=== PATIENT | female | born 1940 | race Caucasian/White ===

== ENCOUNTER 2023-06-18 04:01 | Inpatient (IN) ==
[2023-06-18] MEDS: SODIUM CHLORIDE 0.9% 1,000 ML IV SCH (04:26)
--- NOTE | 2023-06-18 04:27 | Emergency Department Note ---
Impression & Plan Hypoxia, Elevated troponin ED Provider Note NAME: PIPO FLYNN AGE: 82 SEX: F : 1940 ARRIVES VIA: Ambulance INFORMANT: Patient, ED PROVIDER(S): Yessenia Bennett MD CHIEF COMPLAINT: Fever, nausea, generalized weakness HPI: This is an 82-year-old female presenting for fevers, nausea and generalized weakness. Patient had a EMS alerted due to with fevers as well as nausea, weakness and was essentially unresponsive at the scene. Patient is currently significantly fatigued, not answering any questioning. She is currently tachypneic, febrile with an oxygen saturation of 84% on room air. Patient is currently on 6 L. Family states that she has been sick since Monday with fevers, body aches and worsening fatigue. She has had no chest pain that she currently mentions. No diarrhea. ROS: See above HPI for pertinent positives & negatives. A total of 10 systems reviewed and were otherwise negative. PAST MEDICAL HISTORY: See Below PAST SURGICAL HISTORY: See Below FAMILY HISTORY: See Below SOCIAL HISTORY: See Below HOME MEDICATIONS: See Below ALLERGIES: See Below VITALS: See Below PHYSICAL EXAMINATION: General: Lethargic Head: Normocephalic and atraumatic Eyes: Normal inspection, extraocular muscles intact Ear, nose, throat: Normal external exam Neck: Normal range of motion Respiratory: lungs clear to auscultation bilaterally Cardiovascular: Regular rate/rhythm, no murmur GI: soft, nontender, no guarding or rebound Extremities: nontender, moves all extremities Neuro: Not awake or alert, moves all extremities Skin: Warm, dry, and intact MEDICAL DECISION MAKING: This is an 82-year-old female presenting for fever, nausea and generalized weakness. Patient is fairly lethargic here, unable to answer questions. She has borderline hypotension, elevated heart rate and significant fever. Will give her Tylenol and empiric antibiotics with ceftriaxone for suspected pneumonia. She is hypoxic into the 80s -Blood work reveals slight anemia, hypokalemia and normal LFTs -Patient urinalysis reveals no signs of UTI -Negative viral panel -Patient has surprisingly elevated troponin over 1500. Patient more awake after oxygen ministration, she denies any current chest pain or chest pain at all throughout the course of her illness -ECG independently interpreted by me with normal sinus rhythm, rate of 93, left axis deviation, normal MA, normal QRS, normal QTc, no ST segment elevations consistent with STEMI criteria -Repeat troponin is rising to over 2600 -2nd ECG independently interpreted by me with normal sinus rhythm, rate of 83, left axis deviation, normal MA, normal QRS, normal QTc, no ST segment elevations consistent with STEMI criteria, no significant change -Patient CTA currently reveals no process in the arteries. CT head was ordered for confusion, also reveals no intracranial process. -Will defer further workup at this time with otherwise reassuring/negative workup Differential diagnosis: Pneumonia, viral syndrome, myocarditis, ACS, PE ER treatment provided: See below Diagnostics interpreted by me: ECG: See above Cardiac Monitoring: An order was placed for continuous cardiac monitoring. The monitor shows a rate of 85 with sinus rhythm. Laboratory studies: As stated above and show below. Imaging studies: See below. Critical Care Note: I have personally spent 45 minutes of critical care time in the direct management of this patient. This includes bedside care, interpretation of diagnostic studies, and testing, discussion with consultants, patient, and family members, and other required patient management activities. This 45 minutes is in excess of all separately billable procedures. Past Med/Surg History Social History Smoking Status: Never smoker Preferred Language: Arabic Feels Safe at Home: Yes Allergies Allergies Allergy/AdvReac Type Severity Reaction Status Date / Time latex Allergy UNKNOWN Verified 04/18/11 08:48 Sulfa (Sulfonamide Allergy UNKNOWN Verified 04/18/11 08:48 Antibiotics) Results & Data (ED) Vital Signs Vital Signs - 24 hr 06/18/23 04:02 06/18/23 04:02 06/18/23 04:03 Temperature 39.4 C H 39.4 C H Temperature Source Oral Oral Pulse Rate 93 H 93 H Pulse Rate [Finger] 94 H Pulse Rate from SpO2 Sensor Respiratory Rate 38 H 24 Respiratory Depth Normal Blood Pressure 133/62 Blood Pressure [Right Arm] 133/62 Blood Pressure Mean 85 Blood Pressure Mean [Right Arm] 85 Blood Pressure Position [Right Arm] Lying Pulse Oximetry 84 L 84 L Oxygen Delivery Method Room Air Room Air Oxygen Flow Rate Sepsis Recent Fever Within 48 Hours Yes Sepsis New/Unexplained Change in Mental Status Yes Sepsis Action Taken by Nursing Physician Notified 06/18/23 04:15 06/18/23 04:30 06/18/23 04:38 Temperature Temperature Source Pulse Rate 90 92 H Pulse Rate [Finger] Pulse Rate from SpO2 Sensor Respiratory Rate 24 28 H Respiratory Depth Blood Pressure 121/52 L 127/57 L Blood Pressure [Right Arm] Blood Pressure Mean 75 80 Blood Pressure Mean [Right Arm] Blood Pressure Position [Right Arm] Pulse Oximetry 95 96 99 Oxygen Delivery Method Nasal Cannula Nasal Cannula Oxygen Flow Rate 4 4 Sepsis Recent Fever Within 48 Hours Sepsis New/Unexplained Change in Mental Status Sepsis Action Taken by Nursing 06/18/23 04:57 06/18/23 05:15 06/18/23 05:30 Temperature Temperature Source Pulse Rate 88 86 86 Pulse Rate [Finger] Pulse Rate from SpO2 Sensor Respiratory Rate 28 H 26 H 25 H Respiratory Depth Blood Pressure 123/53 L 122/53 L 117/51 L Blood Pressure [Right Arm] Blood Pressure Mean 76 76 73 Blood Pressure Mean [Right Arm] Blood Pressure Position [Right Arm] Pulse Oximetry 95 97 96 Oxygen Delivery Method Nasal Cannula Oxygen Flow Rate 4 Sepsis Recent Fever Within 48 Hours Sepsis New/Unexplained Change in Mental Status Sepsis Action Taken by Nursing 06/18/23 05:45 06/18/23 06:07 06/18/23 06:30 Temperature 38.2 C H Temperature Source Pulse Rate 91 H 89 82 Pulse Rate [Finger] Pulse Rate from SpO2 Sensor Respiratory Rate 24 24 22 Respiratory Depth Blood Pressure 116/57 L 116/65 113/55 L Blood Pressure [Right Arm] Blood Pressure Mean 76 82 74 Blood Pressure Mean [Right Arm] Blood Pressure Position [Right Arm] Pulse Oximetry 96 95 94 Oxygen Delivery Method Nasal Cannula Oxygen Flow Rate 4 Sepsis Recent Fever Within 48 Hours Sepsis New/Unexplained Change in Mental Status Sepsis Action Taken by Nursing 06/18/23 07:00 Temperature Temperature Source Pulse Rate 80 Pulse Rate [Finger] Pulse Rate from SpO2 Sensor 80 Respiratory Rate 21 Respiratory Depth Blood Pressure 110/52 L Blood Pressure [Right Arm] Blood Pressure Mean 71 Blood Pressure Mean [Right Arm] Blood Pressure Position [Right Arm] Pulse Oximetry 95 Oxygen Delivery Method Nasal Cannula Oxygen Flow Rate 2 Sepsis Recent Fever Within 48 Hours Sepsis New/Unexplained Change in Mental Status Sepsis Action Taken by Nursing Laboratory Data 06/18/23 04:08 06/18/23 04:08 Lab Results 06/18/23 06/18/23 06/18/23 Range/Units 04:08 04:20 05:54 WBC 9.06 (4.8-10.8) K/ul RBC 4.38 (4.20-5.40) M/uL Hgb 10.1 L (12.0-16.0) g/dl Hct 31.9 L (37.0-47.0) % MCV 72.8 L (80.0-100.0) fL MCH 23.1 L (25.0-34.0) pg MCHC 31.7 L (32.0-36.0) g/dL RDW Std Deviation 38.8 (36.4-46.3) fL RDW Coeff of Jas 14.8 H (11.5-14.5) % Plt Count 102 L (130-400) K/uL MPV 10.9 (9.4-12.4) fL Immature Gran % (Auto) 0.6 % Neut % (Auto) 93.4 % Lymph % (Auto) 2.6 % Barnwell % (Auto) 3.2 % Eos % (Auto) 0.0 % Baso % (Auto) 0.2 % Neut # (Auto) 8.46 H (1.40-6.50) K/uL Lymph # (Auto) 0.24 L (1.20-3.40) K/uL Barnwell # (Auto) 0.29 (0.11-0.59) K/uL Eos # (Auto) 0.00 (0.00-0.50) K/uL Baso # (Auto) 0.02 (0.00-0.20) K/uL Immature Gran # (Auto) 0.05 (0.01-0.20) K/uL Tear Drop Cells 1+ Ovalocytes 2+ Sodium 134 L (136-145) mmol/L Potassium 3.0 L (3.5-5.1) mmol/L Chloride 101 (98-107) mmol/L Carbon Dioxide 23 (21-32) mmol/L Anion Gap 10 (3-11) BUN 18 (6-23) mg/dl Creatinine 0.83 (0.6-1.2) mg/dl Est Cr Clr Drug Dosing 54.1 ml/min Est GFR ( Amer) 76.6 ml/min Est GFR (Non-Af Amer) 66.1 ml/min BUN/Creatinine Ratio 21.7 H (10-20) Glucose 137 H (70-99(Fasting)) mg/dl Lactate 0.9 (0.4-2.0) mmol/L Calcium 8.5 L (8.6-10.3) mg/dl Total Bilirubin 2.0 H (0.2-1.0) mg/dl AST 21 (13-39) U/L ALT 9 (7-52) U/L Alkaline Phosphatase 45 (34-104) U/L Troponin I High Sens 1542.6 H* 2609.0 H* D (0-14) pg/ml B-Natriuretic Peptide 389 H (0-100) pg/ml Total Protein 5.9 L (6.0-8.3) gm/dl Albumin 3.6 (3.4-5.0) gm/dl Globulin 2.3 L (2.5-4.0) gm/dl Albumin/Globulin Ratio 1.6 (0.9-2) Urine Color Yellow Urine Appearance Clear (Clear) Urine pH 5.0 (4.5-7.5) Ur Specific Benedict 1.025 (1.000-1.030) Urine Protein 1+ H (Negative) Urine Glucose (UA) Negative (Negative) Urine Ketones 2+ H (Negative) Urine Blood Negative (Negative) Urine Nitrite Negative (Negative) Urine Bilirubin Negative (Negative) Urine Urobilinogen Negative (Negative) Ur Leukocyte Esterase Negative (Negative) Urine WBC (Auto) 0 (0-5) /hpf Urine RBC (Auto) 0-4 (0-4) /hpf U Hyaline Cast (Auto) 1-5 (0-5) /lpf U Epithel Cells (Auto) 0-5 (0-5) /lpf Urine Bacteria (Auto) Negative (Negative) Adenovirus (PCR) Not Detected (NotDetected) B. pertussis DNA (PCR) Not Detected (NotDetected) B.parapertussis DNA PCR Not Detected (NotDetected) C. pneumoniae DNA (PCR) Not Detected (NotDetected) Coronavirus OC43 (PCR) Not Detected (NotDetected) Coronavirus HKU1 (PCR) Not Detected (NotDetected) Coronavirus 229E (PCR) Not Detected (NotDetected) SARS-CoV-2 (PCR) Not Detected (NotDetected) Coronavirus NL63 (PCR) Not Detected (NotDetected) Human Metapneumovir PCR Not Detected (NotDetected) Influenza Type A (PCR) Not Detected (NotDetected) Influenza Type B (PCR) Not Detected (NotDetected) M. pneumoniae (PCR) Not Detected (NotDetected) Parainfluenza 1 (PCR) Not Detected (NotDetected) Parainfluenza 2 (PCR) Not Detected (NotDetected) Parainfluenza 3 (PCR) Not Detected (NotDetected) Parainfluenza 4 (PCR) Not Detected (NotDetected) RSV (PCR) Not Detected (NotDetected) Entero/Rhino (PCR) Not Detected (NotDetected) Administered Medications Potassium Chloride (K Crispin / Wtr) 10 meq in 100 mls @ 100 mls/hr IV Q1H JOHNNA Stop: 06/18/23 13:29 Last Admin: 06/18/23 07:31 Dose: 100 mls/hr Documented By: CHICO Sodium Chloride (Nss) 1,000 mls @ 999 mls/hr IV .Q1H1M ONE Stop: 06/18/23 08:24 Last Admin: 06/18/23 07:28 Dose: 999 mls/hr Documented By: CHICO Discontinued Medications Sodium Chloride (Nss) 1,000 mls @ 999 mls/hr IV .Q1H1M JOHNNA Stop: 06/18/23 05:30 Last Infusion: 06/18/23 05:27 Dose: Infused Documented By: Admin: 06/18/23 04:26 Dose: 999 mls/hr Documented By: MILY Ceftriaxone Sodium (Rocephin) 2,000 mg in 50 mls @ 100 mls/hr IV NOW STA Stop: 06/18/23 04:47 Last Infusion: 06/18/23 05:03 Dose: Infused Documented By: Admin: 06/18/23 04:28 Dose: 100 mls/hr Documented By: MILY Acetaminophen (Ofirmev) 1,000 mg in 100 mls @ 400 mls/hr IV NOW STA Stop: 06/18/23 04:59 Last Infusion: 06/18/23 05:11 Dose: Infused Documented By: Admin: 06/18/23 04:56 Dose: 400 mls/hr Documented By: MILY Ioversol (Optiray 320 125ml) 78 ml IV ONCE ONE Stop: 06/18/23 05:59 Last Admin: 06/18/23 05:59 Dose: 78 ml Documented By: PLW Imaging Data Radiologist's Impression: Head CT 06/18/23 04:27 Exam(s): CT HEAD Without Contrast EXAM: CT Head Without Intravenous Contrast CLINICAL HISTORY: Reason for exam: unresponsive. TECHNIQUE: Axial computed tomography images of the head/brain without intravenous contrast. Automated exposure control was utilized for the study. A dose lowering technique was utilized adhering to the principles of ALARA. COMPARISON: No relevant prior studies available. 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 No hemorrhage. Ventricles: Unremarkable. No ventriculomegaly. Bones/joints: Unremarkable. No acute fracture. Soft tissues: Unremarkable. Sinuses: Unremarkable as visualized. No acute sinusitis. Mastoid air cells: Unremarkable as visualized. No mastoid effusion. IMPRESSION: No acute findings in the head/brain. Electronically signed by: Juan Ramon Domínguez MD 06/18/23 06:24 AM Chest CTA 06/18/23 05:17 Exam(s): CTA CHEST IV Amt: 78 ml opti 320 EXAM: CT Angiography Chest With Intravenous Contrast CLINICAL HISTORY: Reason for exam: PE. TECHNIQUE: Axial computed tomographic angiography images of the chest with intravenous contrast. CTDI is 24.49 mGy and DLP is 760.06 mGy-cm. Automated exposure control was utilized for the study. A dose lowering technique was utilized adhering to the principles of ALARA. MIP reconstructed images were created and reviewed. COMPARISON: No relevant prior studies available. FINDINGS: Pulmonary arteries: Unremarkable. No pulmonary embolism. Aorta: No acute findings. No thoracic aortic aneurysm. Lungs: Bibasilar dependent atelectasis. No mass. Pleural space: Unremarkable. No significant effusion. No pneumothorax. Heart: Cardiomegaly. Coronary artery calcifications. No significant pericardial effusion. No evidence of RV dysfunction. Bones/joints: Advanced degenerative changes of the left shoulder. No acute fracture. No dislocation. Soft tissues: Unremarkable. Lymph nodes: Unremarkable. No enlarged lymph nodes. IMPRESSION: No acute findings in the visualized arteries of the chest. Electronically signed by: Joselito Foy MD 06/18/23 07:06 AM Discharge Plan Visit Data Chief Complaint: Flu Like Symptoms Stated Complaint: N/V, Fever, Body Aches ED Provider: Yessenia Bennett Discharge Problem: Hypoxia, Elevated troponin Forms Stand Alone Forms: [facility] Referrals Referrals: Pita Dietz DO [Primary Care Provider] -
[2023-06-18 04:28] LABS: Hematocrit (blood only) 31.9 % (37.0-47.0); Hemoglobin 10.1 g/dl (12.0-16.0); Mean Corpuscular Hemoglobin 23.1 pg (25.0-34.0); Mean Corpuscular Hgb Conc 31.7 g/dL (32.0-36.0); Mean Corpuscular Volume 72.8 fL (80.0-100.0); Mean Platelet Volume 10.9 fL (9.4-12.4); Platelet Count 102 K/uL (130-400); RDW Coefficient of Variation 14.8 % (11.5-14.5); RDW Standard Deviation 38.8 fL (36.4-46.3); Red Blood Count 4.38 M/uL (4.20-5.40); White Blood Count 9.06 K/ul (4.8-10.8)
[2023-06-18] MEDS: cefTRIAXone SODIUM 2,000 MG/50 ML BAG IV STA (04:28)
[2023-06-18 04:35] LABS: Appearance Urine Clear (Clear); Bacteria Urine Automated Negative (Negative); Bilirubin Urine Negative (Negative); Blood Urine Negative (Negative); Color Urine Yellow; Epithelial Cell Urine Auto 0-5 /lpf (0-5); Glucose Urine UA Negative (Negative); Ketones Urine 2+ (Negative); Leukocyte Esterase Urine Negative (Negative); Nitrite Urine Negative (Negative); Protein Urine 1+ (Negative); RBC Urine Automated 0-4 /hpf (0-4); Specific Gravity Urine 1.025 (1.000-1.030); Urobilinogen Urine Negative (Negative); WBC Urine Automated 0 /hpf (0-5)
[2023-06-18 04:50] LABS: Albumin Globulin Ratio 1.6 (0.9-2); Albumin Level 3.6 gm/dl (3.4-5.0); BUN Creatinine Ratio 21.7 (10-20); Calcium 8.5 mg/dl (8.6-10.3); Creatinine Clr Calc Pharmacy 54.1 ml/min; Est GFR (African American) 76.6 ml/min; Est GFR (Non-African American) 66.1 ml/min; Globulin 2.3 gm/dl (2.5-4.0); Total Protein 5.9 gm/dl (6.0-8.3)
[2023-06-18] MEDS: ACETAMINOPHEN 1,000 MG/100 ML VIAL IV STA (04:56)
[2023-06-18 04:57] LABS: Basophils # (auto) 0.02 K/uL (0.00-0.20); Basophils % (auto) 0.2 %; Immature Granulocytes # (auto) 0.05 K/uL (0.01-0.20); Immature Granulocytes % (auto) 0.6 %; Lymphocytes # (auto) 0.24 K/uL (1.20-3.40); Lymphocytes % (auto) 2.6 %; Monocytes # (auto) 0.29 K/uL (0.11-0.59); Monocytes % (auto) 3.2 %; Neutrophils # (auto) 8.46 K/uL (1.40-6.50); Neutrophils % (auto) 93.4 %; Ovalocytes 2+; Tear Drop Cells 1+
[2023-06-18 05:10] LABS: Troponin I High Sensitivity 1542.6 pg/ml (0-14)
[2023-06-18 05:19] LABS: Adenovirus PCR Not Detected (NotDetected); Bordetella parapertussis PCR Not Detected (NotDetected); Bordetella pertussis PCR Not Detected (NotDetected); Chlamydia pneumoniae PCR Not Detected (NotDetected); Coronavirus 229E PCR Not Detected (NotDetected); Coronavirus CoV-2 (COVID19)PCR Not Detected (NotDetected); Coronavirus HKU1 PCR Not Detected (NotDetected); Coronavirus NL63 PCR Not Detected (NotDetected); Coronavirus OC43PCR Not Detected (NotDetected); Human Metapneumovirus PCR Not Detected (NotDetected); Influenza A PCR Not Detected (NotDetected); Influenza B PCR Not Detected (NotDetected); Mycoplasma pneumoniae PCR Not Detected (NotDetected); Parainfluenza Virus 1 PCR Not Detected (NotDetected); Parainfluenza Virus 2 PCR Not Detected (NotDetected); Parainfluenza Virus 3 PCR Not Detected (NotDetected); Parainfluenza Virus 4 PCR Not Detected (NotDetected); Respiratory Syncytial VirusPCR Not Detected (NotDetected); Rhinovirus/Enterovirus PCR Not Detected (NotDetected)
[2023-06-18] MEDS: OPTIRAY 320 125ml IV ONE (05:59)
--- NOTE | 2023-06-18 06:25 | CT Scan Report ---
Exam(s): CT HEAD Without Contrast EXAM: CT Head Without Intravenous Contrast CLINICAL HISTORY: Reason for exam: unresponsive. TECHNIQUE: Axial computed tomography images of the head/brain without intravenous contrast. Automated exposure control was utilized for the study. A dose lowering technique was utilized adhering to the principles of ALARA. COMPARISON: No relevant prior studies available. 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 No hemorrhage. Ventricles: Unremarkable. No ventriculomegaly. Bones/joints: Unremarkable. No acute fracture. Soft tissues: Unremarkable. Sinuses: Unremarkable as visualized. No acute sinusitis. Mastoid air cells: Unremarkable as visualized. No mastoid effusion. IMPRESSION: No acute findings in the head/brain. Electronically signed by: Juan Ramon Domínguez MD 06/18/23 06:24 AM
--- NOTE | 2023-06-18 07:07 | CT Scan Report ---
Exam(s): CTA CHEST IV Amt: 78 ml opti 320 EXAM: CT Angiography Chest With Intravenous Contrast CLINICAL HISTORY: Reason for exam: PE. TECHNIQUE: Axial computed tomographic angiography images of the chest with intravenous contrast. CTDI is 24.49 mGy and DLP is 760.06 mGy-cm. Automated exposure control was utilized for the study. A dose lowering technique was utilized adhering to the principles of ALARA. MIP reconstructed images were created and reviewed. COMPARISON: No relevant prior studies available. FINDINGS: Pulmonary arteries: Unremarkable. No pulmonary embolism. Aorta: No acute findings. No thoracic aortic aneurysm. Lungs: Bibasilar dependent atelectasis. No mass. Pleural space: Unremarkable. No significant effusion. No pneumothorax. Heart: Cardiomegaly. Coronary artery calcifications. No significant pericardial effusion. No evidence of RV dysfunction. Bones/joints: Advanced degenerative changes of the left shoulder. No acute fracture. No dislocation. Soft tissues: Unremarkable. Lymph nodes: Unremarkable. No enlarged lymph nodes. IMPRESSION: No acute findings in the visualized arteries of the chest. Electronically signed by: Joselito Foy MD 06/18/23 07:06 AM
[2023-06-18] MEDS: SODIUM CHLORIDE 0.9% 1,000 ML IV ONE (07:28)
[2023-06-18] MEDS: POTASSIUM CHLORIDE / WTR 10 MEQ/100 ML PLCT IV SCH (07:31)
--- NOTE | 2023-06-18 08:16 | Electrocardiogram Report ---
Test Reason : Blood Pressure : / mmHG Vent. Rate : 093 BPM Atrial Rate : 093 BPM P-R Int : 156 ms QRS Dur : 084 ms QT Int : 342 ms P-R-T Axes : 050 -37 040 degrees QTc Int : 425 ms Normal sinus rhythm Left axis deviation Abnormal ECG When compared with ECG of 22-JUL-2022 18:20, No significant change was found Confirmed by Gerardo Muniz ([id number]) on 06/18/2023 8:16:22 AM Referred By: REFERRED SELF Confirmed By:Gerardo Muniz
--- NOTE | 2023-06-18 08:17 | Electrocardiogram Report ---
Test Reason : Blood Pressure : / mmHG Vent. Rate : 083 BPM Atrial Rate : 083 BPM P-R Int : 178 ms QRS Dur : 086 ms QT Int : 350 ms P-R-T Axes : 035 -36 007 degrees QTc Int : 411 ms Normal sinus rhythm Left axis deviation Low voltage QRS Abnormal ECG When compared with ECG of 18-JUN-2023 04:05, No significant change Confirmed by Gerardo Muniz ([id number]) on 06/18/2023 8:16:44 AM Referred By: REFERRED SELF Confirmed By:Gerardo Muniz
[2023-06-18 08:25] LABS: Bilirubin Direct 0.3 mg/dl (0-0.2); C Reactive Protein 15.92 mg/dl (0-0.5); Thyroid Stimulating Hormone 0.517 uIu/ml (0.300-4.500)
--- NOTE | 2023-06-18 08:31 | XRay Report ---
XR chest 1V portable CLINICAL HISTORY: Dyspnea TECHNIQUE: Single frontal radiograph of the chest was obtained. 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 Calcified aortic knob is seen. The lungs are clear. No e vidence of pleural effusion or pneumothorax. IMPRESSION: No acute abnormalities and in particular no radiographic evidence of pneumonia. ACT 112: Negative or not required by law. Electronically signed by: Wily Hodges M.D. 06/18/2023 8:28 AM
--- NOTE | 2023-06-18 09:49 | History & Physical Report ---
Date of Service June 18, 2023 Assessment & Plan (1) Acute hypoxemic respiratory failure: Plan: Patient is an 82-year-old female with past medical history of controlled type 2 diabetes, hypertension, and hyperlipidemia presents to the hospital for evaluation of general unwellness. It seems since 06/16/2023, patient has had progressively worsening fever, nausea, chills, and bodyaches. She is also become more confused over the past 72 hours. Pt currently hemodynamically stable and to be admitted for further workup for FUO and acute hypoxemic resp failure. -Admit to telemetry, indication being elevated troponin and acute hypoxemic respiratory failure -Unsure as to etiology of acute hypoxemic respiratory failure, CTA and chest x- ray negative for any acute process/atelectasis -Potentially could be due to paroxysmal, abnormal heart rhythm resulting in elevated troponin and poor perfusion causing hypoxemia, continue telemetry -Echocardiogram pending -No history of COPD/asthma, O2 saturation goal of 90% supplemental O2 as needed, currently on 2 L nasal cannula but was previously up to 6 L via EMS -BioFire negative, no adventitious sounds on auscultation -Incentive spirometer ordered (2) Fever: Plan: -? etiology at this time, no lung or urinary source identified on testing -May have to consider CT of abdomen if fever persists and workup below is negative -ESR, CRP, Tickborne illness, TSH labs pending -Peripheral smear ordered, blood culture pending -Hold antipyretics to trend fever -No source of infection identified, hold empiric abx for now given stability (3) Hypokalemia: Plan: - Admission potassium of 3.0 -Suspect secondary to poor p.o. intake in the setting of nausea and fever -Ordered 6K riders in emergency department, currently being given (4) Elevated troponin: Plan: - Troponin on admission at more than 2600, without chest pain or ACS symptoms -Given work of breathing and without evidence of ischemia on EKG, suspect demand ischemia -Echocardiogram ordered, cardiology consulted, appreciate recommendations (5) Type 2 diabetes mellitus: Plan: -Switch metform to basal bolus insulin w/ ss -Pt's reports a1c around 6 through PCP (6) Microcytic anemia: Plan: -chronic issue, noted in previous ED labs last year -morning anemia labs ordered (7) Hypertension: Plan: -Hold antihypertensives given soft BP and electrolyte abnormalities (8) Hyperlipemia: Plan: -Hold statin for now (9) GERD (gastroesophageal reflux disease): Plan: -Continue PPI Plan Dispo: admit to tele for cardiac and fever workup DVT Proph: Heparin Diet: DM2 Code Status: Full as discussed with patient and family History of Present Illness Chief Complaint: Fever Primary Care Provider: Pita Dietz DO Patient is an 82-year-old female with past medical history of controlled type 2 diabetes, hypertension, and hyperlipidemia presents to the hospital for evaluation of general unwellness. It seems since 06/16/2023, patient has had progressively worsening fever, nausea, chills, and bodyaches. She is also become more confused over the past 72 hours. Apparently, earlier this morning, patient became significantly fatigued and confused, so family called EMS. When she was found by EMS, she was tachypneic with an O2 saturation of 84% on room air and was nonresponsive at the scene. She was brought to the hospital for further evaluation. At the time of my arrival, patient's mentation is much improved and she states she is feeling better. She is denying any chest pain nor shortness of breath currently. She has never had a heart attack or stroke. She is able to tell me where we as well as the context but is unable to tell me the president or the year. She is able to state her name and her correct date of . and son are at bedside who states the patient has not been eating or drinking much over the past 3 days. They state that nothing like this has ever happened before. They report that she and her do own 3 dogs and were considering Lyme disease as a possibility for her symptoms. Neither recall having a tick on either of them. denies that the patient has had any diarrhea, hematochezia or melena as far as he is aware. Patient does have a history of diabetes but her sugars have been well-controlled. No other voiced complaints at this time. ED Course: Patient brought back and evaluated by provider. Labs are significant for hemoglobin of 10.1, normal white cell count, mildly low sodium at 134, low potassium at 3.0, glucose 137, bilirubin of 2, high-sensitivity troponin of 1542 that up trended to 2609, urinalysis negative for UTI, bio fire negative. Head CT and chest CTA negative for any acute process. Blood cultures taken prior to Rocephin administration. Patient given a fluid bolus as well as Tylenol and thereafter started on potassium chloride supplementation. The hospitalist service was consulted for concern regarding acute hypoxemic respiratory failure and further workup regarding fever of unknown origin. Allergies Allergy/AdvReac Type Severity Reaction Status Date / Time latex Allergy UNKNOWN Verified 06/18/23 08:40 Sulfa (Sulfonamide Allergy UNKNOWN Verified 06/18/23 08:40 Antibiotics) Home Medications Medication Instructions Recorded Confirmed Type Lactobacillus rhamnosus GG 10 1 cap PO QAM 06/18/23 06/18/23 History billion cell capsule (Culturelle) amlodipine 10 mg tablet 10 mg PO QAM 06/18/23 06/18/23 History atorvastatin 10 mg tablet 10 mg PO HS 06/18/23 06/18/23 History glucosamine-chondroitin 250 mg-200 2 tab PO QAM 06/18/23 06/18/23 History mg tablet (Osteo Bi-Flex) hydrochlorothiazide 12.5 mg tablet 12.5 mg PO QPM 06/18/23 06/18/23 History losartan 100 mg tablet 100 mg PO HS 06/18/23 06/18/23 History metformin 500 mg tablet,extended 1,000 mg PO BID 06/18/23 06/18/23 History release 24 hr omeprazole 20 mg capsule,delayed 20 mg PO QAM 06/18/23 06/18/23 History release Past Med/Surg History Social History Smoking Status: Never smoker Hx Alcohol Use: No Hx Substance Use: No Preferred Language: Omani Director Of Convention Services Required: No Beliefs That Will Affect Care: None Current Living Situation: Spouse Other Information That Helps Us Care for You: No Feels Safe at Home: Yes Safety Concerns: Feels Safe At This Time Assistive Devices: None Review of Systems Review of Systems: All systems reviewed & are unremarkable except as noted in HPI & below Physical Exam Constitutional: WD/WN, vitals as above Eyes: + anicteric sclerae Neck: trachea midline, no thyromegaly Respiratory: normal respiratory effort, lungs clear to auscultation Cardiovascular: Rate/Rhythm: regular rate and regular rhythm Heart Sounds: + murmur Vessels: no JVD Extremities: + edema (1+ pitting edema b/l) Gastrointestinal (Abdomen): normal bowel sounds, soft, nontender, no hepatosplenomegaly Musculoskeletal: Head/Neck/Chest: normocephalic and head atraumatic Skin: [place] rash noted Neurologic: moves all extremities Psychiatric: Orientation: alert, oriented to person, oriented to place and cooperative; + not oriented to time Affect: euthymic affect Lymphatic: no cervical or axillary lymphadenopathy Results & Data Results & Data Vital Signs (Past 12 Hours) Vital Signs Temp Pulse Pulse Resp BP BP Pulse Ox 06/18/23 08:29 82 06/18/23 08:00 86 24 112/59 L 94 06/18/23 07:30 86 26 H 109/54 L 97 06/18/23 07:00 80 21 110/52 L 95 06/18/23 06:30 82 22 113/55 L 94 06/18/23 06:07 89 24 116/65 95 06/18/23 05:45 38.2 C H 91 H 24 116/57 L 96 06/18/23 05:30 86 25 H 117/51 L 96 06/18/23 05:15 86 26 H 122/53 L 97 06/18/23 04:57 88 28 H 123/53 L 95 06/18/23 04:38 99 06/18/23 04:30 92 H 28 H 127/57 L 96 06/18/23 04:15 90 24 121/52 L 95 06/18/23 04:03 93 H 06/18/23 04:02 39.4 C H 93 H 24 133/62 84 L 06/18/23 04:02 39.4 C H 94 H 38 H 133/62 84 L O2 Del Method O2 Flow Rate 06/18/23 08:29 06/18/23 08:00 Nasal Cannula 2 06/18/23 07:30 Nasal Cannula 2 06/18/23 07:00 Nasal Cannula 2 06/18/23 06:30 06/18/23 06:07 06/18/23 05:45 Nasal Cannula 4 06/18/23 05:30 06/18/23 05:15 06/18/23 04:57 Nasal Cannula 4 06/18/23 04:38 Nasal Cannula 4 06/18/23 04:30 06/18/23 04:15 Nasal Cannula 4 06/18/23 04:03 06/18/23 04:02 Room Air 06/18/23 04:02 Room Air Code Status & VTE Plan VTE Prophylaxis Plan VTE Prophylaxis will be ordered: Yes Supervising Physician Co-Signing Physician Notes Attending Physician Supervision Note: I independently interviewed and examined the patient and verified the barraza history and physical, reviewed labs and image studies and agree with findings and care plan noted above.
[2023-06-18] MEDS ORDERED: GLUCOSE 10 TAB/TUBE PO PRN (10:20)
[2023-06-18] MEDS ORDERED: GLUCOSE 40% GEL 15 GM TUBE PO PRN (10:20)
[2023-06-18] MEDS ORDERED: CARBOHYDRATES FOR HYPOGLYCEMIA PO PRN (10:20)
[2023-06-18] MEDS ORDERED: POLYETHYLENE (MIRALAX) 17 GM PACK PO PRN (10:20)
[2023-06-18] MEDS ORDERED: GLUCAGON FOR INJ 1 MG VIAL SQ PRN (10:20)
[2023-06-18] MEDS: INSULIN ASPART PER UNIT CHARGE SC SCH (10:37)
--- NOTE | 2023-06-18 11:47 | XCELERA ---
[id number]
--- NOTE | 2023-06-18 13:13 | Cardiology Consultation ---
Date of Consultation June 18, 2023 Assessment & Plan (1) Demand ischemia: (2) Fever: (3) Hypoxia: (4) Moderate mitral regurgitation: (5) Type 2 diabetes mellitus: Plan 82-year-old woman with no significant cardiac history admitted with unexplained fever and hypoxemia which seem to be rapidly resolving. She had no chest pain at any time, ECG is completely benign, creatinine kinase is normal, and echocardiogram shows no wall motion abnormality. Thus, elevated troponin is most likely consistent with demand ischemia secondary to confusion/agitation, hypoxemia, mild hypertension/tachycardia. Endocarditis is a possible source of fever, but she had no leukocytosis and she would not be expected to show such rapid improvement if she had endocarditis. Await blood culture results, if positive may need to evaluate potential SBE further, but it seems unlikely at this point. Troponin seems to have peaked, in the absence of any cardiopulmonary symptoms such as chest pain or dyspnea and given her favorable hemodynamics, no specific treatment beyond continuing to monitor and treating any hypertension (she is on amlodipine/losartan/HCT as an outpatient) or tachycardia (would initiate metoprolol to decrease cardiac demand). No additional workup such as stress testing will be necessary in the absence of recurring symptoms. Will sign off from a cardiology standpoint. If she develops new symptoms or further cardiac issues arise, please contact Dr. Logan, he will be covering the cardiology service this week. History of Present Illness Reason for Consultation: Elevated troponin Requesting Physician: Clau Domínguez MD Attending Physician: Clau Domínguez MD History of Present Illness 82-year-old woman with multiple vascular risk factors (DM, HTN, dyslipidemia, age) but no prior cardiac history who was admitted today (06/18/2023) with fever/nausea/chills/body aches/confusion noted to be hypoxemic and admitted for acute respiratory failure/fever, had benign ECG and no chest pain but noted to have elevated troponin. She has done remarkably well since admission, confusion completely resolved and she feels well noting no current somatic complaints. She specifically denied having chest pain at a time and notes no current dyspnea, myalgias, or other somatic complaints. Allergies Allergy/AdvReac Type Severity Reaction Status Date / Time latex Allergy UNKNOWN Verified 06/18/23 08:40 Sulfa (Sulfonamide Allergy UNKNOWN Verified 06/18/23 08:40 Antibiotics) Home Medications Medication Instructions Recorded Confirmed Type Lactobacillus rhamnosus GG 10 1 cap PO QAM 03/10/24 03/10/24 History billion cell capsule (Culturelle) amlodipine 10 mg tablet 10 mg PO QAM 06/18/23 06/18/23 History atorvastatin 10 mg tablet 10 mg PO HS 06/18/23 06/18/23 History glucosamine-chondroitin 250 mg-200 2 tab PO QAM 06/18/23 06/18/23 History mg tablet (Osteo Bi-Flex) hydrochlorothiazide 12.5 mg tablet 12.5 mg PO QPM 06/18/23 06/18/23 History losartan 100 mg tablet 100 mg PO HS 06/18/23 06/18/23 History metformin 500 mg tablet,extended 1,000 mg PO BID 06/18/23 06/18/23 History release 24 hr omeprazole 20 mg capsule,delayed 20 mg PO QAM 06/18/23 06/18/23 History release Patient History Social History Smoking Status: Never smoker Preferred Language: Mohawk Feels Safe at Home: Yes Physical Exam Physical Exam: No distress. Tmax 102.9, currently afebrile. BP normotensive. Pulse 82 bpm regular. Respirations 19 unlabored. Skin: no ecchymoses or generalized lesions. HEENT: unremarkable. Neck: JVP at the clavicle at 90 degrees, no carotid bruits. Lungs: clear bilaterally. No accessory muscle use.. Cardiac: regular rhythm, normal S1-2, 3/6 apical holosystolic murmur rating to the left sternal border and axilla, no diastolic murmur. Abdomen: benign. Extremities: no edema, pulses intact. Neurologic: normal affect and conversation, nonfocal. Results & Data Laboratory Results CK1 156. Troponin 1542 initially, increasing to 2609. Hemoglobin 10.1 with normal white count, platelet count dropped from 206,000 to 102,000 overnight. ESR 34 mm/h. Sodium 134, potassium 3.0, BUN 18, creatinine 0.83. Lactate 0.9. Normal transaminases. BNP 389. C-reactive protein 15.92. Blood cultures were drawn. Diagnostic Findings Initial ECG showed sinus rhythm at 93 bpm and was completely unremarkable. No change compared with 07/22/2022 ECG. A second ECG showed sinus rhythm at 83 bpm and was also unremarkable. Chest x-ray unremarkable Chest CT unremarkable. Echocardiogram today showed EF 55 to 60% with no wall motion abnormalities. Moderate mitral regurgitation with moderately dilated left atrium and mild pulmonary hypertension. No prior study for comparison. PG Care Time/CCT Total # of Minutes Spent Total Time Spent with Patient: Total time spent is greater than 50% in coordination of care (as documented) at patient's floor/unit and/or counseling patient: Coding Level of Care Code 96004 IN/OBS CONSULT LVL 4,60M Diagnoses Demand ischemia I24.89 Fever R50.9 Hypoxia R09.02 Moderate mitral regurgitation I34.0 Type 2 diabetes mellitus E11.9
[2023-06-18] MEDS: BUTALBITAL/ACETAMIN/CAFFEINE TAB PO STA (19:36)
[2023-06-18] MEDS: HEPARIN SOD 5,000 UNIT/0.5 ML VIAL SQ SCH (21:25)
[2023-06-18] MEDS: LANTUS PER UNIT CHARGE SQ SCH (21:55)
[2023-06-18 23:50] LABS: A calco-baum cmplx NotReported Not Detected (NotDetected); Bact fragilis Not Reported Not Detected (NotDetected); Blood Culture Id Panel PCR Panel Negative (NotDetected); C auris Not Reported Not Detected (NotDetected); Calbicans Not Reported Not Detected (NotDetected); Candida glabrata Not Reported Not Detected (NotDetected); Candida krusei Not Reported Not Detected (NotDetected); Cneoformans/gatti Not Reported Not Detected (NotDetected); Cparapsilosis Not Reported Not Detected (NotDetected); E cloacae compx Not Reported Not Detected (NotDetected); Efaecalis Not Reported Not Detected (NotDetected); Efaecium Not Reported Not Detected (NotDetected); Enterobacterales Not Reported Not Detected (NotDetected); Escherichia coli Not Reported Not Detected (NotDetected); H influenzae Not Reported Not Detected (NotDetected); K aerogenes Not Reported Not Detected (NotDetected); Koxytoca Not Reported Not Detected (NotDetected); Kpneumoniae grp Not Reported Not Detected (NotDetected); Lmonocyt Not Reported Not Detected (NotDetected); N meningitidis Not Reported Not Detected (NotDetected); P aeruginosa Not Reported Not Detected (NotDetected); Proteus spp Not Reported Not Detected (NotDetected); Salmonella spp Not Reported Not Detected (NotDetected); Smarcescens Not Reported Not Detected (NotDetected); Staph lugdunensis Not Reported Not Detected (NotDetected); Staph spp. Not Reported Not Detected (NotDetected); Staphaureus Not Reported Not Detected (NotDetected); Staphepi Not Reported Not Detected (NotDetected); Stenmaltophilia Not Reported Not Detected (NotDetected); Strep agal(GrpB) Not Reported Not Detected (NotDetected); Strep pneum Not Reported Not Detected (NotDetected); Strep pyog (GrpA) Not Reported Not Detected (NotDetected); Strep spp Not Reported Not Detected (NotDetected)
[2023-06-19] MEDS ORDERED: VANCOMYCIN CONSULT ACTIVE PRN (00:46)
[2023-06-19] MEDS: VANCOMYCIN HCL 1,750 MG in SODIUM CHLORIDE 0.9% 500 ML IV ONE (01:22)
--- NOTE | 2023-06-19 06:51 | Hospitalist Progress Note ---
Date of Service June 19, 2023 Assessment & Plan (1) Gram-positive bacteremia: Plan: She is currently hemodynamically stable but still febrile (37.7 C). The etiology of her acute hypoxemic respiratory failure, elevated troponins, and bacteremia is still unclear. CXR, CTA, urnialysis, and echo all unremarkable. Blood culture sensitivities and PCRs still pending. #Fever -still unknown etiology, 37.7 C this AM -Blood culture sensitivities and PCR still pending -Provide empiric vancomycin abx to cover for gram + cocci pending sensitivities -Repeat blood cultures at 24 hours -Consult infectious disease #Elevated troponin -Troponin on admission at more than 2600, without chest pain or ACS symptoms, still rising now at 4575.2 -Given work of breathing and without evidence of ischemia on EKG, suspect demand ischemia -Repeat troponin levels to see if they go down as bacteremia is treated -Order transesophageal echocardiogram to monitor for endocarditis #Hypokalemia -Admission potassium of 3.0, now 3.7 -Suspect secondary to poor p.o. intake in the setting of nausea and fever, consider resolved #Type 2 DM, chronic -Switched metformin to basal bolus insulin w/ ss -Continue basal bolus insulin #Microcytic anemia, chronic -Chronic issue, noted in previous ED labs last year -Order PT/INR, fibrinogen, d-dimer labs #HTN -Continue to hold antihypertensives given BP and electrolyte abnormlaities #HLD -Continue to hold statin for now #GERD -Continue PPI Dispo: tele VTE ppx: heparin Diet: DM2 Code: Full as discussed with patient and family Admission and Anticipated Discharge Date Admission Date: June 18, 2023 Supervising Physician Co-Signing Physician Notes I personally examined the patient and verified all barraza points of history and exam, discussed case, and agree with decision making with Dr Gardiner and M Cutler MS2 feeling okay. No joint or back pain. No chest pain or shortness of breath. Daughter notes that she does not really have much of memory for things since getting sick, denies any notable preceding memory issues before getting sick. Vitals noted, in general she is awake and alert easily forgetful but no distress. HEENT normocephalic atraumatic mucous membranes moist. Breathing unlabored no accessory muscle use good effort. Skin shows no rashes no pallor or icterus. Neuro without focal deficits. Gram-positive bacteremiadental versus skinawait full identification and sensitivities. No clinical evidence of bone or joint infection at this time, transthoracic echo reassuringbut troponin concerning, await repeat cultures, consider transesophageal echo, consult infectious disease for input (both on risk for endocarditis/need for GIANA, as well as overall duration and optimal antibiotic to finish course of treatment)obviously pending full identification and sensitivities to be able to make these judgments. Elevated troponinconcerning for endocarditis, versus also could easily be demand ischemia. Thrombocytopenianonspecific, follow. DVT prophylaxisheparin subcu otherwise as above Subjective CC: fever, nausea, weakness, altered mental status HPI: Melvi is an 82 year old female with past medical history of controlled DM2, HT, and hyperlipidemia who presented to our emergency department for fever, nausea, weakness, and altered mental status. She was unresponsive and not answering questions in the ED. On presentation to the ED, she was tachypneic (38), febrile (39.4 C), and had an oxygen saturation of 84% on room air. Her troponin was elevated, over 1500, and repeat troponin was 2600. Urinalysis and viral panel were negative. CTA and CXR were unremarkable. ECG was unremarkable with the exception of right axis deviation. She was given tylenol and ceftriaxone and put on supplemental oxygen. This AM, she reports feeling well. She does not remember feeling unwell at any point or having symptoms. She is wondering when she can go home. She is still febrile (37.7 C). She denies recent travel, illness, wounds, surgeries, skin changes, or exposure to other infectious etiology. She also denies chest pain or shortness of breath. She lives at home with her and 3 dogs in [place]. Cardiology consult suggests that due to her lack of chest pain, benign ECG, normal CK, and echo showing no wall motion abnormality that her elevated troponin levels are likely due to demand ischemia. She is developing a thrombocytopenia. Blood cultures were positive for gram + cocci. Troponin level is still trending upwards, most recently at 4575.2 pg/ml. Labs have been negative for tickborne illnesses so far, but still pending some PCRs. During our visit, her oxygen saturation was 97% with 2L nasal canula and still at 97% consistently with removal of the canula. Review of Systems Review of Systems: All negative except as noted above. Physical Exam Physical Exam: Vitals: BP: 106/64 NE: 76 RR: 18 T: 37.7 C, O2 Sat: 96% on nasal cannula General: Alert, oriented, NAD Respiratory: Clear to auscultation bilateraly, no W/R/R Cardiology: RRR, no M/R/G Psych: Affect and mood appropriate Results & Data Results & Data Laboratory Results 06/19/23 06/19/23 06/19/23 07:45 07:07 00:17 WBC 5.40 RBC 3.89 L Hgb 9.1 L Hct 28.6 L MCV 73.5 L MCH 23.4 L MCHC 31.8 L RDW Std Deviation 39.9 RDW Coeff of Jas 15.1 H Plt Count 78 L MPV 11.0 Immature Gran % (Auto) 0.4 Neut % (Auto) 77.4 Lymph % (Auto) 10.9 [place] % (Auto) 10.2 Eos % (Auto) 0.7 Baso % (Auto) 0.4 Neut # (Auto) 4.18 Lymph # (Auto) 0.59 L [place] # (Auto) 0.55 Eos # (Auto) 0.04 Baso # (Auto) 0.02 Immature Gran # (Auto) 0.02 Ovalocytes 1+ Peripher Smr Path Cons Sodium 140 Potassium 3.7 D Chloride 109 H Carbon Dioxide 27 Anion Gap 4 BUN 15 Creatinine 0.76 Est Cr Clr Drug Dosing 59.2 Est GFR ( Amer) 85.3 Est GFR (Non-Af Amer) 73.6 BUN/Creatinine Ratio 19.7 Glucose 89 POC Glucose 92 Calcium 7.7 L Iron < 10 L Transferrin 162 L Ferritin 130.2 Total Bilirubin 0.9 D AST 36 ALT 12 Alkaline Phosphatase 37 Troponin I High Sens 4575.2 H* D 3681.5 H* Total Protein 5.0 L Albumin 3.1 L Globulin 1.9 L Albumin/Globulin Ratio 1.6 Vitamin B12 452 Folate 18.53 Bld Cult ID Panel PCR 06/18/23 06/18/23 06/18/23 19:54 17:50 16:17 WBC RBC Hgb Hct MCV MCH MCHC RDW Std Deviation RDW Coeff of Jas Plt Count MPV Immature Gran % (Auto) Neut % (Auto) Lymph % (Auto) [place] % (Auto) Eos % (Auto) Baso % (Auto) Neut # (Auto) Lymph # (Auto) [place] # (Auto) Eos # (Auto) Baso # (Auto) Immature Gran # (Auto) Ovalocytes Peripher Smr Path Cons Sodium Potassium Chloride Carbon Dioxide Anion Gap BUN Creatinine Est Cr Clr Drug Dosing Est GFR ( Amer) Est GFR (Non-Af Amer) BUN/Creatinine Ratio Glucose POC Glucose 95 119 H Calcium Iron Transferrin Ferritin Total Bilirubin AST ALT Alkaline Phosphatase Troponin I High Sens 3459.7 H* D Total Protein Albumin Globulin Albumin/Globulin Ratio Vitamin B12 Folate Bld Cult ID Panel PCR 06/18/23 06/18/23 12:09 04:08 WBC RBC Hgb Hct MCV MCH MCHC RDW Std Deviation RDW Coeff of Jas Plt Count MPV Immature Gran % (Auto) Neut % (Auto) Lymph % (Auto) [place] % (Auto) Eos % (Auto) Baso % (Auto) Neut # (Auto) Lymph # (Auto) [place] # (Auto) Eos # (Auto) Baso # (Auto) Immature Gran # (Auto) Ovalocytes Peripher Smr Path Cons Sodium Potassium Chloride Carbon Dioxide Anion Gap BUN Creatinine Est Cr Clr Drug Dosing Est GFR ( Amer) Est GFR (Non-Af Amer) BUN/Creatinine Ratio Glucose POC Glucose Calcium Iron Transferrin Ferritin Total Bilirubin AST ALT Alkaline Phosphatase Troponin I High Sens 2739.1 H* Total Protein Albumin Globulin Albumin/Globulin Ratio Vitamin B12 Folate Bld Cult ID Panel PCR PCR Panel Negative Diagnostic Findings Initial ECG - unremarkable, no change compared with 07/22/2022 ECG. Second ECG also unremarkable. Chest x-ray unremarkable Chest CT unremarkable. Echocardiogram showed EF 55 to 60% with no wall motion abnormalities. Moderate mitral regurgitation with moderately dilated left atrium and mild pulmonary hypertension. There is no prior imaging for comparison. Resident Activity Tracking Resident Involvement: Resident Care Provided Care Provided: Adult [facility] Medicine
[2023-06-19] MEDS: PANTOprazole 40 MG TAB PO SCH (07:36)
[2023-06-19 08:22] LABS: Hematocrit (blood only) 28.6 % (37.0-47.0); Hemoglobin 9.1 g/dl (12.0-16.0); Mean Corpuscular Hemoglobin 23.4 pg (25.0-34.0); Mean Corpuscular Hgb Conc 31.8 g/dL (32.0-36.0); Mean Corpuscular Volume 73.5 fL (80.0-100.0); Platelet Count 78 K/uL (130-400); RDW Coefficient of Variation 15.1 % (11.5-14.5); RDW Standard Deviation 39.9 fL (36.4-46.3); Red Blood Count 3.89 M/uL (4.20-5.40)
[2023-06-19 08:23] LABS: Alanine Aminotransferase 12 U/L (7-52); Albumin Globulin Ratio 1.6 (0.9-2); Albumin Level 3.1 gm/dl (3.4-5.0); Alkaline Phosphatase 37 U/L (34-104); Anion Gap 4 (3-11); Aspartate Aminotransferase 36 U/L (13-39); BUN Creatinine Ratio 19.7 (10-20); Bilirubin,Total 0.9 mg/dl (0.2-1.0); Blood Urea Nitrogen 15 mg/dl (6-23); Calcium 7.7 mg/dl (8.6-10.3); Carbon Dioxide 27 mmol/L (21-32); Chloride 109 mmol/L (98-107); Creatinine Clr Calc Pharmacy 59.2 ml/min; Est GFR (African American) 85.3 ml/min; Est GFR (Non-African American) 73.6 ml/min; Globulin 1.9 gm/dl (2.5-4.0); Glucose 89 mg/dl (70-99(Fasting)); Iron < 10 mcg/dl (35-150); Potassium 3.7 mmol/L (3.5-5.1); Sodium 140 mmol/L (136-145); Transferrin 162 mg/dl (200-360)
[2023-06-19 08:39] LABS: Basophils # (auto) 0.02 K/uL (0.00-0.20); Basophils % (auto) 0.4 %; Eosinophils # (auto) 0.04 K/uL (0.00-0.50); Eosinophils % (auto) 0.7 %; Immature Granulocytes # (auto) 0.02 K/uL (0.01-0.20); Immature Granulocytes % (auto) 0.4 %; Lymphocytes # (auto) 0.59 K/uL (1.20-3.40); Lymphocytes % (auto) 10.9 %; Monocytes # (auto) 0.55 K/uL (0.11-0.59); Monocytes % (auto) 10.2 %; Neutrophils # (auto) 4.18 K/uL (1.40-6.50); Neutrophils % (auto) 77.4 %; Ovalocytes 1+
[2023-06-19 08:42] LABS: Ferritin 130.2 ng/ml (8-388)
[2023-06-19 08:46] LABS: Folate (Folic Acid),Ser orPlas 18.53 ng/ml (>5.38)
--- NOTE | 2023-06-19 10:28 | Pharmacy Report ---
Pharmacy PK ABX Note - Date of Service June 19, 2023 - Assessment and Plan Assessment 82 year old F receiving vancomycin for Gm-positive bacteremia. Patient presenting with fever/nausea/chills/confusion. BCID2 negative, however unclear if organism growing is not included in panel. Discussed with provider and recommended broadening therapy and to consider ID consult. Plan Vancomycin * Loading dose: 1750 mg IV x 1 given in ED * Maintenance dose: 1250 mg IV every 18 hours * Regimen is predicted to achieve target AUC/PIERRE of 400-600 mg/L.hr * Plan to order random level tomorrow to ensure dosing appropriate Pharmacy will continue to follow and will adjust dose/frequency as necessary. Thank you. Pharmacy has transitioned to AUC monitoring for vancomycin. AUC/PIERRE is the preferred PK/PD target and is associated with decreased risk of nephrotoxicity compared to traditional trough targets.
[2023-06-19] MEDS: VANCOMYCIN HCL 1,250 MG in SODIUM CHLORIDE 0.9% 250 ML IV SCH (11:51)
[2023-06-19] MEDS ORDERED: VANCOMYCIN HCL 1,250 MG in SODIUM CHLORIDE 0.9% 250 ML IV SCH (12:00)
[2023-06-19 16:16] LABS: Fibrinogen 442 mg/dl (184-400); Prothrombin Time 10.6 Seconds (9.0-12.0)
[2023-06-19 16:21] LABS: D Dimer 1980 ug/L FEU (0-500)
--- NOTE | 2023-06-19 18:05 | Billing Data ---
Date of Service June 19, 2023 Coding Level of Care Code 02257 SUB INP/OBS CARE MIN
[2023-06-20 07:23] LABS: Basophils # (auto) 0.01 K/uL (0.00-0.20); Basophils % (auto) 0.2 %; Eosinophils # (auto) 0.09 K/uL (0.00-0.50); Eosinophils % (auto) 1.8 %; Hematocrit (blood only) 27.5 % (37.0-47.0); Hemoglobin 8.8 g/dl (12.0-16.0); Immature Granulocytes # (auto) 0.01 K/uL (0.01-0.20); Immature Granulocytes % (auto) 0.2 %; Lymphocytes # (auto) 0.85 K/uL (1.20-3.40); Lymphocytes % (auto) 16.8 %; Mean Corpuscular Hemoglobin 23.3 pg (25.0-34.0); Mean Corpuscular Volume 72.8 fL (80.0-100.0); Mean Platelet Volume 11.2 fL (9.4-12.4); Monocytes % (auto) 9.9 %; Neutrophils % (auto) 71.1 %; Platelet Count 106 K/uL (130-400); RDW Coefficient of Variation 14.9 % (11.5-14.5); RDW Standard Deviation 39.5 fL (36.4-46.3); Red Blood Count 3.78 M/uL (4.20-5.40); White Blood Count 5.06 K/ul (4.8-10.8)
[2023-06-20 07:38] LABS: BUN Creatinine Ratio 17.9 (10-20); Calcium 7.8 mg/dl (8.6-10.3); Creatinine Clr Calc Pharmacy 57.7 ml/min; Est GFR (African American) 82.6 ml/min; Est GFR (Non-African American) 71.3 ml/min; Magnesium 1.6 mg/dl (1.7-2.4); Potassium 3.5 mmol/L (3.5-5.1)
--- NOTE | 2023-06-20 08:52 | Hospitalist Progress Note ---
Date of Service June 20, 2023 Assessment & Plan (1) Gram-positive bacteremia: Plan: She remains hemodynamically stable and is now afebrile. Suspected etiology of bacteremia could be a cracked molar tooth, though blood sensitivities still pending. Blood culture grew alpha strep. She does not report any cardiac or MSK concerns. Currently receiving empiric vancomycin abx. #fever - 37.0 C this AM. Blood culture grew alpha strep, not S. pneumoniae or enteroco cci - continue empiric vancomycin abx pending sensitivities - consult ID #elevated troponin - concerning for endocarditis, but could also be demand ischemia - trending downwards, most recently 3776.9 pg/ml - repeat troponin and continue monitoring for any heart complications #microcytic anemia, chronic - D-dimer elevated at 1980 ug/L and fibrinogen elevated at 442 mg/dL. These measurements could be elevated in the context of infection. She is already receiving heparin as prophylaxis for dvt - PT 10.6, INR 1.0 - continue heparin prophylaxis #thrombocytopenia - nonspecific - platelet count trending upwards, 78 K/uL -->106 K/uL - continue monitoring #type 2 DM, chronic -switched from home metformin to basal bolus insulin on admission -continue basal bolus insulin #HTN -continue holding antihypertensives given BP and electrolyte abnormalities #HDL -continue to hold statin for now #GERD -continue PPI Dispo: tele VTE ppx: heparin Diet: DM2 Code: full as discussed with patient and family Admission and Anticipated Discharge Date Admission Date: June 18, 2023 Supervising Physician Co-Signing Physician Notes I personally examined the patient and verified all barraza points of history and exam, discussed case, and agree with decision making with Dr Gardiner and [facility] MS2 Feels okay. No back pain no joint pain no chest pain or shortness of breath. Updated family to the best my ability. Discussed with infectious disease later input appreciated. Vitals noted, in general she is awake and alert easily forgetful but no distress. HEENT normocephalic atraumatic mucous membranes moist. Breathing unlabored no accessory muscle use good effort. Skin shows no rashes no pallor or icterus. Neuro without focal deficits. Gram-positive bacteremiadental versus skinawait full identification and sensitivities. No clinical evidence of bone or joint infection at this time, transthoracic echo reassuringbut troponin concerning, await repeat cultures, consider transesophageal echo, Appreciate infectious disease input, will d iscuss with cardiology further. If repeat cultures are negative, picture is probably more reassuring, at the same time given strep species, endocarditis is certainly possible. Confusion/altered mental statusprobably metabolic encephalopathy due to sepsis that has improved. Elevated troponinconcerning for endocarditis, versus also could easily be demand ischemia. Thrombocytopenianonspecific, follow. ipmroving DVT prophylaxisheparin subcu otherwise as above Subjective No acute events overnight. Patient reports feeling well this AM. She denies back pain, joint pains, shortness of breath, difficulty breathing, chest pain, and feeling like her heart is skipping a beat. She is concerned about being able to get her dental procedure done July 09. Review of Systems Review of Systems: All negative except as noted above. Physical Exam Physical Exam: General: A&O x 3, well-appearing, in no acute distress Respiratory: Lungs clear to auscultation bilaterally, no W/R/R Heart: RRR, no M/R/V. No edema Skin: No rashes, pallor, or lesions MSK: No pain to spinal palpation. No joint erythema or edema Results & Data Results & Data Vital Signs (Past 12 Hours) Vital Signs Temp Pulse Pulse Resp BP Pulse Ox O2 Del Method 06/20/23 07:26 37.0 C 70 18 124/67 96 Room Air 06/20/23 02:41 37.2 C 64 18 120/60 95 Room Air 06/19/23 23:35 65 06/19/23 22:55 37.1 C 76 18 126/67 94 Room Air 06/19/23 22:15 Room Air Laboratory Results Troponin levels trending downwards (4575.2 --> 3776.9 pg/ml). Platelet count trending upwards (78 -->106 K/uL), fibrinogen 442 mg/dL, and d-dimer 1980 ug/L. Most recent Mg level 1.6 mg/dL. Last Mg level on 07/22/22 was 1.4 mg/dL. Blood cultures grew alpha strep not s. pneumoniae or enterococci. Blood sensitivities still pending.
--- NOTE | 2023-06-20 11:34 | Infectious Disease Consult ---
Date of Consultation June 20, 2023 Assessment & Plan (1) Infection due to alpha-hemolytic Streptococcus: (2) Fever: (3) Demand ischemia: (4) Type 2 diabetes mellitus: Plan 82yo F with h/o T2DM, HTN, HLD, right shoulder replacement 10yrs ago who presented on 06/17 with feeling unwell. She had progressively worsening fever, nausea, chills, body aches since 06/15, and poor PO intake x 3 days. Also noted to be more confused over 72hrs, found by EMS to be hypoxic to 84% and nonrespons elvin. Here she was febrile to 39.4, BP stable, initially on 4L NC. WBC 9.06, Cr 0.83, AST/ALT wnl. Troponin peaked at 4500. ESR 34, CRP 15.92. D dimer 1979. UA negative. Negative anaplasma/babesia smear. Lyme neg. RPP neg. CXR neg. CTH neg. Chest CTA neg. TTE with LVEF 55-60%, moderate MR. BCx returned positive and ID consulted 06/19 for assistance. She has been afebrile since admission, and is on RA. Blood cultures have alpha hemolytic Strep, which includes viridans group common oral pennie but also a typical organism for endocarditis. Since she does have reported dental issues of the right molar, and with bacteremia, I do think she should get imaging of the mandible. TTE was already done and didnt note any vegetations. However, I do see a very high troponin and that cardiology feels endocarditis is possible. She does have hardware in the right shoulder but does not have acute symptoms. Given high troponin and viridans Strep, we may need to consider pursuing GIANA to r/o endocarditis, especially if repeat blood cx are positive. Sensitivities were sent, will keep her on vancomycin for now while waiting for results. # Alpha-hemolytic Streptococcus bacteremia # Right molar issue # h/o R shoulder replacement - please obtain CT of dentition/mandible (with contrast if safe to do so) - may need to consider pursuing GIANA to r/o endocarditis especially given c/f viridans group Strep and if blood cultures remain positive - repeat BCX have been sent, will f/u - will continue on vancomycin for now - f/u susceptibility data and will narrow abx once available ID will continue to follow. If questions or concerns, contact Infectious Disease Call Center . Carina Anguiano MD [facility], Division of Infectious Diseases [facility]: [phone] Consultation Information Consultation was provided via telemedicine using two-way real-time interactive telecommunication between the patient and the telemedicine provider. For the d uration of the visit, the provider was performing the assessment from a different facility than the patient. This includesuse of bluetooth stethoscope forauscultationperformed by the telepresenter that the telemedicine provider can hear if described in the physical exam. [employer] contact information: Please call [facility] Call Center [phone]. (Phone Number For Physician Use Only) After establishing a telemedicine visit, patient was: Patient was verified with two unique identifiers, Patient/authorized rep acknowledged consent and understanding and Gave permission to continue telehealth session Time Spent with Patient: Initial => 75 min History of Present Illness Reason for Consultation: gram positive bacteremia Attending Physician: Joselito Longoria DO History of Present Illness 82yo F with h/o T2DM, HTN, HLD, right shoulder replacement 10yrs ago who presented on 06/17 with feeling unwell. She had progressively worsening fever, nausea, chills, and body aches since 06/15. Also noted to be more confused over 72hrs so family called EMS who noted she was tachypneic and hypoxic to 84% and nonresponsive. Family reported that patient hasnt been eating or drinking well for 3 days. She did not have diarrhea. Family voiced concerns that she owns dogs and question of Lyme, though no ticks were noted. Here she was febrile to 39.4, BP stable, initially on 4L NC. WBC 9.06, Cr 0.83, AST/ALT wnl. Troponin peaked at 4500. ESR 34, CRP 15.92. D dimer 1980. UA negative. Negative anaplasma/babesia smear. Lyme neg. RPP neg. CXR neg. CTH neg. Chest CTA neg. TTE with LVEF 55-60%, moderate MR. BCx returned positive and ID consulted 06/19 for assistance. She has been receiving vancomycin. BCx with alpha Strep, not S pneumo/enteroc. On evaluation, patient reports she had a fever on Monday and had been feeling unwell. She notes having a cracked molar 1 month ago on the right back of her lower teeth. She had seen a dentist and planned for a root canal on July 09. She has some discomfort in that tooth, but no pain. She doesnt have any back pain. She had a right shoulder replacement 10yrs ago, no shoulder pain. No other rashes. No other hardware or cardiac devices/artificial valves. No abdominal pain, v/d, shortness of breath, congestion, cough, sore throat, sinus pain. No sick contacts. Allergies Allergy/AdvReac Type Severity Reaction Status Date / Time latex Allergy UNKNOWN Verified 06/18/23 08:40 Sulfa (Sulfonamide Allergy UNKNOWN Verified 06/18/23 08:40 Antibiotics) Home Medications Medication Instructions Recorded Confirmed Type Lactobacillus rhamnosus GG 10 1 cap PO QAM 06/18/23 06/18/23 History billion cell capsule (Culturelle) amlodipine 10 mg tablet 10 mg PO QAM 06/18/23 06/18/23 History atorvastatin 10 mg tablet 10 mg PO HS 06/18/23 06/18/23 History glucosamine-chondroitin 250 mg-200 2 tab PO QAM 06/18/23 06/18/23 History mg tablet (Osteo Bi-Flex) hydrochlorothiazide 12.5 mg tablet 12.5 mg PO QPM 06/18/23 06/18/23 History losartan 100 mg tablet 100 mg PO HS 06/18/23 06/18/23 History metformin 500 mg tablet,extended 1,000 mg PO BID 06/18/23 06/18/23 History release 24 hr omeprazole 20 mg capsule,delayed 20 mg PO QAM 06/18/23 06/18/23 History release Patient History Social History Smoking Status: Never smoker Hx Alcohol Use: No Hx Substance Use: No Preferred Language: Lithuanian Communication Ability: Effective Collet Maker Required: No Beliefs That Will Affect Care: None Current Living Situation: Spouse Other Information That Helps Us Care for You: No Feels Safe at Home: Yes Safety Concerns: Feels Safe At This Time Assistive Devices: None Review of System 10-point review of systems reviewed and are negative except for as above. Physical Exam Physical Exam: General: Awake, alert, no acute distress HEENT: NC/AT, EOMI, mmm, black discoloration of lower right molar, no swelling Neck: supple, no LAD, no swelling or tenderness Lungs: respirations non-labored Heart: nl peripheral perfusion Abdomen: soft, NT/ND Back: no spinal tenderness Ext: + bl LE edema Skin: no rash Neuro: moving all extremities Results & Data Vital Signs (Past 12 Hours) Vital Signs Temp Pulse Pulse Resp BP Pulse Ox O2 Del Method 06/20/23 07:26 37.0 C 70 18 124/67 96 Room Air 06/20/23 02:41 37.2 C 64 18 120/60 95 Room Air 06/19/23 23:35 65 Laboratory Results Labs reviewed 06/17 BCX: alpha Strep not S.pne/enteroco in anaerobic bottles of 2 sets 06/19 BCx: pending Diagnostic Findings Imaging reviewed
[2023-06-20 12:02] LABS: EBV Nuclear Ag Antibody >600.00 U/mL; Epstein Barr Virus Early Ag Ab <9.00 U/mL
--- NOTE | 2023-06-20 16:52 | Billing Data ---
Date of Service June 20, 2023 Coding Level of Care Code 51848 SUB INP/OBS CARE MIN
--- NOTE | 2023-06-20 16:52 | Billing Data ---
Date of Service June 20, 2023 Coding Level of Care Code 14047 SUB INP/OBS CARE MIN
[2023-06-21] MEDS: VANCOMYCIN HCL 1,250 MG in SODIUM CHLORIDE 0.9% 250 ML IV SCH (06:41)
--- NOTE | 2023-06-21 09:15 | Pre Anesthesia Assessment ---
Date of Service June 21, 2023 Pre Sedation Assessment Vital Signs Temp Pulse Pulse Resp BP Pulse Ox O2 Del Method 06/21/23 09:00 68 06/21/23 07:40 36.7 C 67 18 122/69 95 Room Air 06/21/23 02:36 36.9 C 70 18 126/68 94 Room Air 06/20/23 23:15 37.3 C 06/20/23 22:43 37.8 C H 68 18 125/78 94 Room Air 06/20/23 22:00 64 06/20/23 19:28 37.1 C 71 18 138/81 95 Room Air 06/20/23 16:25 71 06/20/23 16:08 37.0 C 72 18 118/66 95 Room Air 06/20/23 11:47 37.0 C 70 18 134/71 98 Room Air Cardiovascular + regular rate + murmur Respiratory + crackles Pre-Sedation Airway Assessment Smoking Status: Never smoker Mallampati Class: II ASA: ASA3 NPO Status Date of Last Intake of Fluids: 06/20/23 Time of Last Intake of Fluids: 17:00 Date of Last Intake of Solid Food: 06/20/23 Time of Last Intake of Solid Foods: 17:00 Procedure Planning Contraindications for Sedation: none Current Medications Reviewed: Yes Notes The planned sedation has been discussed with the patient. Informed Consent was obtained. I have identified the patient, determined the appropriateness of sedation and have assessed the patient immediately prior to the procedure. All medicine(s) and interventions are by my order.
[2023-06-21 09:28] LABS: Hematocrit (blood only) 28.8 % (37.0-47.0); Hemoglobin 8.9 g/dl (12.0-16.0); Mean Corpuscular Hemoglobin 22.8 pg (25.0-34.0); Mean Corpuscular Hgb Conc 30.9 g/dL (32.0-36.0); Mean Corpuscular Volume 73.7 fL (80.0-100.0); Platelet Count 109 K/uL (130-400); RDW Coefficient of Variation 14.6 % (11.5-14.5); RDW Standard Deviation 38.8 fL (36.4-46.3); Red Blood Count 3.91 M/uL (4.20-5.40); White Blood Count 4.83 K/ul (4.8-10.8)
[2023-06-21 09:37] LABS: BUN Creatinine Ratio 15.5 (10-20); Calcium 8.1 mg/dl (8.6-10.3); Est GFR (African American) 75.5 ml/min; Est GFR (Non-African American) 65.2 ml/min; Potassium 3.6 mmol/L (3.5-5.1)
--- NOTE | 2023-06-21 10:15 | Post Operative Brief Note ---
Cardiology Brief Post Op Date of Surgery June 21, 2023 Pre & Post Diagnosis Operation Date: 06/21/23 09:30 <No data on this case meets the specified criteria> Procedure GIANA Fire Alarm Technician Efra Logan MD Assistant Professor Abraham Estimated Blood Loss 0 Findings See Below Prelim: Mitral valve vegetation with mild to moderate regurgitation. Dr. Longoria notified.
--- NOTE | 2023-06-21 10:16 | Hospitalist Progress Note ---
Date of Service June 21, 2023 Assessment & Plan (1) Gram-positive bacteremia: Plan: In sum, Melvi is an 82 year old F presenting with gram positive bacteremia, suspected etiology may be dental. #gram positive bacteremia - blood culture grew alpha strep, not S. pneumoniae or enterococci - patient reported R knee pain Monday prior to symptom onset on Monday - continue empiric vancomycin abx pending sensitivities - order knee XR - ID consulted, appreciate recs #elevated troponin - concerning for endocarditis, GIANA done this morning showed vegetation at the mitral valve - troponin trending downwards, most recently 3776.9 pg/ml - repeat troponin and continue monitoring for any heart complications - longer abx course will be needed outpatient, pending sensitivities - PICC line consent on file; pending placement #microcytic anemia, chronic - D-dimer elevated at 1980 ug/L and fibrinogen elevated at 442 mg/dL. These measurements could be elevated in the context of infection. She is already receiving heparin as prophylaxis for dvt - PT 10.6, INR 1.0 - continue heparin prophylaxis #thrombocytopenia - nonspecific - platelet count trending upwards, 78 K/uL -->106 K/uL - continue monitoring #type 2 DM, chronic -switched from home metformin to basal bolus insulin on admission -continue basal bolus insulin #HTN -continue holding antihypertensives given BP and electrolyte abnormalities #HDL -continue to hold statin for now #GERD -continue PPI Dispo: tele VTE ppx: heparin Diet: DM2 Code: full as discussed with patient and family Admission and Anticipated Discharge Date Admission Date: June 18, 2023 Supervising Physician Co-Signing Physician Notes I personally examined the patient and verified all barraza points of history and exam, discussed case, and agree with decision making with Dr Gardiner and M [facility] MS2 feels good, little groggy, discussed GIANA findings. Answered questions to the best my ability.Vitals noted, in general she is awake and alert easily forgetful but no distress. HEENT normocephalic atraumatic mucous membranes moist. Breathing unlabored no accessory muscle use good effort. Skin shows no rashes no pallor or icterus. Neuro without focal deficits. Gram-positive bacteremiadental versus skinawait full identification and sensitivities. Strongly suspect dental. Infectious disease concerned about osteomyelitis of the jawx-rays ordered. Discussed with maxillofacial who will evaluate her as well. Confusion/altered mental statusprobably metabolic encephalopathy due to sepsis that has improved. Elevated troponinconcerning for endocarditis, versus also could easily be demand ischemia. Thrombocytopenianonspecific, follow. improved overall DVT prophylaxisheparin subcu otherwise as above Subjective No acute events overnight. Patient remains feeling well this AM. She denies current back pain, joint pains, shortness of breath, chest pain, and feeling like her heart is skipping a beat. She mentioned that she did had right knee pain Monday prior to her symptom onset on Monday, but that she did not have this pain currently. She does not have any history of joint pains. She is aware that she is going to get a GIANA. Review of Systems Review of Systems: All negative except as noted above. Physical Exam Physical Exam: General: Alert and oriented, well-appearing, in no acute distress Respiratory: Clear to auscultation bilaterally, no W/R/R Cardiology: RRR, no M/R/G MSK: No pain to spinal palpation. No joint erythema or edema MSK: No rashes, pallor, icterus Results & Data Results & Data Vital Signs (Past 12 Hours) Vital Signs Temp Pulse Pulse Resp BP Pulse Ox O2 Del Method 06/21/23 07:40 36.7 C 67 18 122/69 95 Room Air 06/21/23 02:36 36.9 C 70 18 126/68 94 Room Air 06/20/23 23:15 37.3 C 06/20/23 22:43 37.8 C H 68 18 125/78 94 Room Air 06/20/23 22:00 64 Laboratory Results Blood culture 06/17 positive for alpha strep, not s. pneumoniae or enterococci. No growth after 48 hours. Blood culture 06/19 no growth after 24 hours. Sensitivities pending. Latest troponin 06/18 3776.9 pg/ml Diagnostic Findings Initial ECG 06/17 - unremarkable, no change compared with 07/22/2022 ECG. Second ECG also unremarkable. CXR 06/[address] 06/17 unremarkable. TTE 06/17 showed EF 55 to 60% with no wall motion abnormalities. Moderate mitral regurgitation with moderately dilated left atrium and mild pulmonary hypertension. There is no prior imaging for comparison.
--- NOTE | 2023-06-21 10:21 | Post Anesthesia Assessment ---
Date of Service June 21, 2023 Post Sedation Assessment Vital Signs Temp Pulse Pulse Resp BP Pulse Ox O2 Del Method 06/21/23 10:15 68 18 127/58 L 99 Room Air 06/21/23 10:06 70 18 127/62 99 Room Air 06/21/23 10:00 72 18 134/65 99 Oxymask 06/21/23 09:55 64 18 125/52 L 99 Oxymask 06/21/23 09:50 64 18 107/52 L 99 Oxymask 06/21/23 09:45 64 18 105/52 L 99 Oxymask 06/21/23 09:40 64 18 109/53 L 99 Oxymask 06/21/23 09:35 64 18 136/86 99 Oxymask 06/21/23 09:30 60 18 139/65 99 Oxymask 06/21/23 09:16 67 18 149/65 H 93 Room Air 06/21/23 09:00 68 06/21/23 07:40 36.7 C 67 18 122/69 95 Room Air 06/21/23 02:36 36.9 C 70 18 126/68 94 Room Air 06/20/23 23:15 37.3 C 06/20/23 22:43 37.8 C H 68 18 125/78 94 Room Air 06/20/23 22:00 64 06/20/23 19:28 37.1 C 71 18 138/81 95 Room Air 06/20/23 16:25 71 06/20/23 16:08 37.0 C 72 18 118/66 95 Room Air 06/20/23 11:47 37.0 C 70 18 134/71 98 Room Air O2 Flow Rate 06/21/23 10:15 06/21/23 10:06 06/21/23 10:00 10 06/21/23 09:55 10 06/21/23 09:50 10 06/21/23 09:45 10 06/21/23 09:40 10 06/21/23 09:35 10 06/21/23 09:30 10 06/21/23 09:16 06/21/23 09:00 06/21/23 07:40 06/21/23 02:36 06/20/23 23:15 06/20/23 22:43 06/20/23 22:00 06/20/23 19:28 06/20/23 16:25 06/20/23 16:08 06/20/23 11:47 Recovery Score Activity: Moves 4 extremities Respiration: Deep Breath/Cough Circulation: +/-20% PreAnes Value Consciousness: Fully Awake Oxygen Saturation: > 92% On Room Air Post Anesthesia Score: 10 Discharge Sedation Level of Care: Fast Track Phase II Post Sedation Plan On clinical assessment, the patient appears to have tolerated the sedation without complications. Patient is recovering as anticipated. Patient will continue to be monitored by nursing and may be discharged when sedation discharge criteria are met per below protocol. Upon Completions of procedure up to 15 minutes continue every 5 minute vital signs and the P.A.R. score; then discharge to a Phase I or Fast Track to Phase II per the following guidelines: * Discharge Patient to appropriate Phase II area if PAR is 8 or greater or return to pre- procedure baseline. The post - procedure orders will be as directed. * If PAR score is less than 8 or not return to pre-procedure baseline then patient will follow Phase I monitoring till PAR is reached for Phase II. The Phase I may be done in procedure room or may call to secure a Phase I area. * If naloxone or flumazenil are used for reversal, hold in Phase I for continued monitoring from when last reversal dose was given for a minimum of 60 minutes or longer pending the nurse and/or physician discretion of patient condition before discharge to Phase II. Please call the Sedation Physician to re-evaluate and complete post-note for discharge to Phase II area. Do NOT discharge from procedure sedation or Phase 1 until post- sedation evaluation note is complete by procedure /sedation MD Sedation Discharge Instructions to be given to the patient at discharge to home.
[2023-06-21] MEDS: BENZOCAINE/TETRACAIN/BUTAM 50 APPLN/5 GM CAN EXT ONE (10:52)
[2023-06-21] MEDS: fentaNYL citrate PF 100 MCG/2 ML VIAL ONE (10:52)
[2023-06-21] MEDS: MIDAZOLAM HCL 5 MG/ML 1 ML VIAL ONE (10:52)
--- NOTE | 2023-06-21 12:26 | XRay Report ---
XR knee RT 1 or 2V routine CLINICAL HISTORY: new onset right knee pain; r/o septic joint TECHNIQUE: 2 views of the right knee were obtained. Comparison: None available at the time of this dictation. FINDINGS: There is no evidence of an acute fracture. Degenerative changes are seen in the knee joint. No joint effusion is seen. Vascular calcifications are noted. IMPRESSION: No evidence of acute osseous injury. ACT 112: Negative or not required by law. Electronically signed by: Wily Hodges M.D. 06/21/2023 12:23 PM
--- NOTE | 2023-06-21 15:02 | Infectious Disease Progress Nt ---
Date of Service June 21, 2023 Assessment & Plan (1) Infective endocarditis: (2) Infection due to alpha-hemolytic Streptococcus: (3) Fever: (4) Demand ischemia: (5) Type 2 diabetes mellitus: Plan 82yo F with h/o T2DM, HTN, HLD, right shoulder replacement 10yrs ago who presen rashawn on 06/17 with feeling unwell. She had progressively worsening fever, nausea, chills, body aches since 06/15, and poor PO intake x 3 days. Also noted to be more confused over 72hrs, found by EMS to be hypoxic to 84% and nonresponsive. Here she was febrile to 39.4, BP stable, initially on 4L NC. WBC 9.06, Cr 0.83, AST/ALT wnl. Troponin peaked at 4500. ESR 34, CRP 15.92. D dimer 1980. UA negative. Negative anaplasma/babesia smear. Lyme neg. RPP neg. CXR neg. CTH neg. Chest CTA neg. TTE with LVEF 55-60%, moderate MR. BCx returned positive for alpha Strep and ID consulted 06/19 for assistance. She has been afebrile since admission and is on RA. ID consulted 06/19 for alpha Strep bacteremia. GIANA showed mitral vegetation. I do still think that we should get dental imaging as this could possibly be the source and, if so, see if this can be addressed inpatient. Since she has a mitral vegetation, will treat her for endocarditis. Will wait for sensitivities from cultures and results of cx from 06/19. Given that she does have endocarditis, I will send another set of cultures today. # Mitral valve endocarditis # Alpha-hemolytic Streptococcus bacteremia # Right molar issue # h/o R shoulder replacement - please obtain imaging of dentition/mandible as this could be likely source - f/u blood cx sensitivities and cx from 06/19 - I did order another set of BCx today as a precaution in the event she remains bacteremic - no PICC line until negative BCx x 48hrs - will continue on vancomycin for now - f/u susceptibility data and will narrow abx once available - final regimen pending cultures ID will continue to follow. If questions or concerns, contact Infectious Disease Call Center . Carina Anguiano MD [facility], Division of Infectious Diseases IDConnect: [phone] Admission and Anticipated Discharge Date Admission Date: June 18, 2023 Subjective This patient recommendation is based on a telemedicine consult request which was completed asynchronously through chart review and information provided by the primary physician. The patient was not seen or examined today. The evaluation is consultative in nature and all patient care and treatment decisions can either be accepted or rejected by the patient's primary hospital-based treating physician using their own independent medical judgment for their patient. Time Spent Reviewing Chart: 31+ minutes Results & Data Vital Signs (Past 12 Hours) Vital Signs Temp Pulse Pulse Resp BP Pulse Ox O2 Del Method 06/21/23 11:45 36.8 C 60 18 117/61 91 Room Air 06/21/23 10:50 37.1 C 63 16 135/61 91 Room Air 06/21/23 10:30 67 18 125/65 99 Room Air 06/21/23 10:15 68 18 127/58 L 99 Room Air 06/21/23 10:06 70 18 127/62 99 Room Air 06/21/23 10:00 72 18 134/65 99 Oxymask 06/21/23 09:55 64 18 125/52 L 99 Oxymask 06/21/23 09:50 64 18 107/52 L 99 Oxymask 06/21/23 09:45 64 18 105/52 L 99 Oxymask 06/21/23 09:40 64 18 109/53 L 99 Oxymask 06/21/23 09:35 64 18 136/86 99 Oxymask 06/21/23 09:30 60 18 139/65 99 Oxymask 06/21/23 09:16 67 18 149/65 H 93 Room Air 06/21/23 09:00 68 06/21/23 07:40 36.7 C 67 18 122/69 95 Room Air O2 Flow Rate 06/21/23 11:45 06/21/23 10:50 06/21/23 10:30 06/21/23 10:15 06/21/23 10:06 06/21/23 10:00 10 06/21/23 09:55 10 06/21/23 09:50 10 06/21/23 09:45 10 06/21/23 09:40 10 06/21/23 09:35 10 06/21/23 09:30 10 06/21/23 09:16 06/21/23 09:00 03/13/24 07:40
--- NOTE | 2023-06-21 17:22 | XCELERA ---
[id number]
--- NOTE | 2023-06-21 19:17 | Billing Data ---
Date of Service June 21, 2023 Coding Level of Care Code 88648 SUB INP/OBS CARE MIN
[2023-06-22 05:55] LABS: BUN Creatinine Ratio 17.7 (10-20); Calcium 8.1 mg/dl (8.6-10.3); Creatinine Clr Calc Pharmacy 57.4 ml/min; Est GFR (African American) 81.4 ml/min; Est GFR (Non-African American) 70.2 ml/min; Potassium 3.6 mmol/L (3.5-5.1)
[2023-06-22 06:01] LABS: Hematocrit (blood only) 26.8 % (37.0-47.0); Hemoglobin 8.4 g/dl (12.0-16.0); Mean Corpuscular Hgb Conc 31.3 g/dL (32.0-36.0); Mean Corpuscular Volume 73.4 fL (80.0-100.0); Mean Platelet Volume 10.3 fL (9.4-12.4); Platelet Count 123 K/uL (130-400); RDW Coefficient of Variation 14.7 % (11.5-14.5); RDW Standard Deviation 39.1 fL (36.4-46.3); Red Blood Count 3.65 M/uL (4.20-5.40); White Blood Count 4.58 K/ul (4.8-10.8)
[2023-06-22] MEDS: VANCOMYCIN LEVEL ONE (06:14)
--- NOTE | 2023-06-22 06:51 | XRay Report ---
XR facial bones <3V CLINICAL HISTORY: jaw - r/o evidence of osteomyelitis. Right jaw pain. COMPARISON STUDY: Head and neck CTA 06/18/2023. FINDINGS: No fractures within the facial bones. The mandible appears intact. The nasal sinuses and ma stoid air cells appear clear. Soft tissues are unremarkable. No destructive changes to suggest an ost eomyelitis. IMPRESSION: No evidence for mandibular osteomyelitis. ACT 112: Negative or not required by law. Electronically signed by: Compa Velasquez M.D. 06/22/2023 6:49 AM
--- NOTE | 2023-06-22 07:47 | Pharmacy Report ---
Pharmacy PK ABX Note - Date of Service June 22, 2023 - Assessment and Plan Assessment 82 year old F receiving vancomycin for mitral valve endocarditis, alpha strep bacteremia. 06/17 blood cultures (+) alpha strep not S. pneumo/enterococcus in 05/14, awaiting susceptibilities. Repeat cultures NGTD. ID consulted. Renal function stable. Plan Vancomycin * Current regimen: 1250mg IV q24h * Random level this AM (~23h level), 9.3mcg/mL. Predicted to achieve ssAUC 439mg/L.hr with a 69% probability that AUC >400. * Increase to 1500mg IV q24h starting this evening. Predicted to achieve ssAUC 512mg/L.hr. * Repeat level in ~ 48h. Pharmacy will continue to follow and will adjust dose/frequency as necessary. Thank you. Pharmacy has transitioned to AUC monitoring for vancomycin. AUC/PIERRE is the preferred PK/PD target and is associated with decreased risk of nephrotoxicity compared to traditional trough targets.
--- NOTE | 2023-06-22 09:26 | Hospitalist Progress Note ---
Date of Service June 22, 2023 Assessment & Plan (1) Gram-positive bacteremia: Plan: gram positive bacteremia - blood culture grew alpha strep, not S. pneumoniae or enterococci. Sensitivities have not grown; repeat blood cx still negative - ID consulted, appreciate recs - consult oromaxillofacial surgery for tooth extraction - continue vancomycin abx for now, plan for home care IV antibiotics pending sensitivities - PICC line to be placed today elevated troponin secondary to endocarditis - GIANA showed vegetation at the mitral valve - troponin trending downwards, most recently 3776.9 pg/ml on 06/21/23 - will discuss case with cardiothoracic surgery, although suspect surgical intervention of limited benefit microcytic anemia, chronic - D-dimer elevated at 1980 ug/L and fibrinogen elevated at 442 mg/dL. These measurements could be elevated in the context of infection. She is already receiving heparin as prophylaxis for dvt - PT 10.6, INR 1.0 - continue heparin prophylaxis thrombocytopenia - nonspecific - platelet count trending upwards, 106 K/uL -->123 K/uL - continue monitoring type 2 DM, chronic -switched from home metformin to basal bolus insulin on admission -continue basal bolus insulin HTN -continue holding antihypertensives HDL -continue to hold statin GERD -continue PPI Dispo: tele VTE ppx: heparin Diet: DM2 Code: full as discussed with patient and family Admission and Anticipated Discharge Date Admission Date: June 18, 2023 Supervising Physician Co-Signing Physician Notes I personally examined the patient and verified all barraza points of history and exam, discussed case, and agree with decision making with Dr Gardiner and Hodan Cutler MS2 Feels good overall. Mostly wonders when she could go home. Discussed with microbiology labdifficult growth, have repleted, still not enough to chest on sensitivities. At infectious disease request, [facility] for who would/would not benefit from valve surgery with endocarditis, but given that she is clinically stable, and with her age, he felt that it would likely be more harm than benefit for surgery unless she was failing to improve or had significant valvular disease. I agree. Vitals noted, in general she is awake and alert easily forgetful but no distress. HEENT normocephalic atraumatic mucous membranes moist. Breathing unlabored no accessory muscle use good effort. Skin shows no rashes no pallor or icterus. Neuro without focal deficits. Gram-positive bacteremiadental versus skinawait full identification and sensitivities, Although becoming more clear that we may not have this data to work with. Given this, discussed with infectious disease, given the low probability of resistant bacteria, as well as the higher risk of toxicities with antibiotics that would cover for resistant strepwill switch to ceftriaxone 2 g IV daily and follow, likely if empiric treatment is needed will send on ceftriaxone for presumptive 4 weeks with close follow-upgiven that we will be treating empirically rather than based off sensitivities we will repeat cultures next week, echocardiogram near the end of therapy, and extend therapy further if needed. Strongly suspect dental. Infectious disease concerned about osteomyelitis of the jawx-rays ordered. Discussed with maxillofacial who will evaluate her as well. PICC line placed Confusion/altered mental statusprobably metabolic encephalopathy due to sepsis that has improved. Elevated troponinconcerning for endocarditis, versus also could easily be demand ischemia. Thrombocytopenianonspecific, follow. improved overall DVT prophylaxisheparin subcu otherwise as above Subjective Patient feeling well this AM, denies back pain, joint pain, shortness of breath, chest pain, and feeling like her heart is skipping a beat. She has no other concerns. Review of Systems Review of Systems: All negative except as noted above. Physical Exam Physical Exam: Constitutional: well appearing, no acute distress HEENT: normocephalic, no conjunctival injection CV: clinically well perfused Respiratory: no increased work of breathing MSK: no gross deformities noted Skin: warm, dry, no rashes Neuro: alert, oriented, no FND noted Psych: mood and affect congruent Results & Data Results & Data Vital Signs (Past 12 Hours) Vital Signs Temp Pulse Pulse Resp BP Pulse Ox O2 Del Method 06/22/23 07:00 36.9 C 66 18 130/75 94 Room Air 06/22/23 02:39 36.6 C 67 18 126/72 93 Room Air 06/21/23 23:00 37.0 C 63 18 112/65 91 Room Air 06/21/23 22:00 62 Diagnostic Findings Interpretation Summary 1. Normal left ventricular size and systolic function. EF 65-70%. No regional wall motion abnormalities. Mild concentric left ventricular hypertrophy. 2. Mobile mass involving the posterior leaflet (P2) of the mitral valve, c onsistent with vegetation (approximately 11 x 5 mm). 3. Mild to moderate mitral regurgitation. 4. Trace aortic regurgitation. 5. Normal estimated right ventricular systolic pressure. 6. Small pericardial effusion without echocardiographic evidence of tamponade physiology. 7. Patient tolerated procedure well without known complication. 8. Findings were discussed with patient, her , and communicated with primary hospitalist, Dr. Longoria.
[2023-06-22 11:42] LABS: Babesia microti DNA Not Detected (Not Detected)
[2023-06-22 12:09] LABS: Ehrlichia chaff DNA Bld Negative (Negative)
--- NOTE | 2023-06-22 14:40 | Infectious Disease Progress Nt ---
Date of Service June 22, 2023 Assessment & Plan (1) Infective endocarditis: (2) Infection due to alpha-hemolytic Streptococcus: (3) Fever: (4) Demand ischemia: (5) Type 2 diabetes mellitus: Plan 82yo F with h/o T2DM, HTN, HLD, right shoulder replacement 10yrs ago who presen rashawn on 06/17 with feeling unwell. She had progressively worsening fever, nausea, chills, body aches since 06/15, and poor PO intake x 3 days. Also noted to be more confused over 72hrs, found by EMS to be hypoxic to 84% and nonresponsive. Here she was febrile to 39.4, BP stable, initially on 4L NC. WBC 9.06, Cr 0.83, AST/ALT wnl. Troponin peaked at 4500. ESR 34, CRP 15.92. D dimer 1980. UA negative. Negative anaplasma/babesia smear. Lyme neg. RPP neg. CXR neg. CTH neg. Chest CTA neg. TTE with LVEF 55-60%, moderate MR. BCx returned positive for alpha Strep and ID consulted 06/19 for assistance. She has been afebrile since admission and is on RA. ID consulted 06/19 for alpha Strep bacteremia. GIANA showed 11 x 5mm mobile mass involving posterior mitral leaflet, mild-moderate mitral regurgitation, trace AR, small pericardial effusion. Face XR negative for mandibular osteomyelitis. Waiting on blood cx sensitivities. I spoke to micro lab and they are having trouble growing organism for cultures. They are running it again today and, if goes well, can get results by tomorrow. I told them if we are unable get the results then this should be sent to [place] for testing. For her endocarditis, given >10mm vegetation, cardiothoracic surgery should be consulted or at least have them review her case. She does also have mitral regurgitation. Currently no s/o heart failure or emboli. Will continue on vancomycin, this is being managed by pharmacy (guidelines recommend trough of 10-15). If we are unable to get sensitivities, then we will need to weigh risk/benefits of therapy. There is a little over 90% chance Strep isolate is CTX susceptible. Given her age, I would like to avoid toxic drugs (ie gent, vanc) if possible. Therefore, if we are unable to get an answer for susceptibilities tomorrow, then will plan for treatment with CTX for 4-6 weeks with close monitoring. # Mitral valve endocarditis # Alpha-hemolytic Streptococcus bacteremia # Dental issues R lower molar # h/o R shoulder replacement - would consult/discuss case with cardiothoracic surgery given large vegetation - f/u blood cx sensitivities and remaining cx - PICC line may be placed when cx are negative x 48hrs - continuing on vancomycin for now (pharmacy dosed) - f/u susceptibility data reportedly available by tomorrow. If not then will plan for treating with CTX 2g IV daily to avoid drug toxicity - plan will be for 4-6 weeks of IV antibiotics - she will need dental management given this is an oral organism corrective care should be done while she is still on abx - she should have a repeat TTE at end of therapy - encourage daily dental hygiene and frequent dental evaluations - she will need abx ppx prior to future invasive dental work given risk for recurrent IE - she will require follow up with a local ID provider in the community ID will continue to follow. If questions or concerns, contact Infectious Disease Call Center . Carina Anguiano MD [facility], Division of Infectious Diseases IDConnect: [phone] Admission and Anticipated Discharge Date Admission Date: June 18, 2023 Subjective Subsequent visit was provided via telemedicine using two-way real-time interactive telecommunication between the patient and the telemedicine provider. For the duration of the visit, the provider was performing the assessment from a different facility than the patient. This includesuse of bluetooth stethoscope forauscultationperformed by the telepresenter that the telemedicine provider can hear if described in the physical exam. Hospice Music Therapist contact information: Please call ID Connect Call Center . (Phone Number For Physician Use Only) After establishing a telemedicine visit, patient was: Patient was verified with two unique identifiers, Patient/authorized rep acknowledged consent and understanding and Gave permission to continue telehealth session Time Spent with Patient: Subsequent => 55 min Patient doing well. No SOB, chest pain. Has baseline leg edema. Physical Exam Physical Exam: General: Awake, alert, no acute distress HEENT: NC/AT, EOMI, mmm Neck: supple Lungs: respirations non-labored Heart: nl peripheral perfusion Abdomen: soft, NT/ND Ext: + LE edema Results & Data Vital Signs (Past 12 Hours) Vital Signs Temp Pulse Resp BP Pulse Ox O2 Del Method 06/22/23 11:05 36.8 C 63 17 147/66 H 99 Room Air 06/22/23 07:00 36.9 C 66 18 130/75 94 Room Air 06/22/23 02:39 36.6 C 67 18 126/72 93 Room Air
--- NOTE | 2023-06-22 16:38 | Billing Data ---
Date of Service June 22, 2023 Coding Level of Care Code 35635 SUB INP/OBS CARE MIN
[2023-06-22] MEDS: cefTRIAXone SODIUM 2,000 MG in DEXTROSE 5 % MINI-B 50 ML IV SCH (17:22)
[2023-06-22] MEDS ORDERED: VANCOMYCIN HCL 1,500 MG in SODIUM CHLORIDE 0.9% 500 ML IV SCH (20:00)
--- NOTE | 2023-06-23 08:22 | Oral/Maxillofacial Consult ---
Date of Consultation June 23, 2023 Assessment & Plan (1) Fractured tooth: (2) Infective endocarditis: (3) Infection due to alpha-hemolytic Streptococcus: History of Present Illness Attending Physician: Joselito Longoria DO History of Present Illness Oral Maxillofacial Surgery Exam Present Complaint: I have pain and sensitivity to my lower right back molar # 19 Her dentist told her the tooth is cracked and referred for endo Developed endocarditis and ID feels this developed from a dental etiology. Oral Exam: Finding--overall a very healthy oral cavity, no periodontal issues, no bleeding gums, Oral care excellent. No draining fistula The only positive finding is the cracked # 19. Given the recent developments Melvi wants to have the tooth removed rather then getting a root canal-I agree Imaging: Joselito Longoria D.O. XR facial bones <3V CLINICAL HISTORY: jaw - r/o evidence of osteomyelitis. Right jaw pain. COMPARISON STUDY: Head and neck CTA 06/18/2023. FINDINGS: No fractures within the facial bones. The mandible appears intact. The nasal sinuses and mastoid air cells appear clear. Soft tissues are unremarkable. No destructive changes to suggest an osteomyelitis. IMPRESSION: No evidence for mandibular osteomyelitis. I reviewed the X Rays and agree that there are no dental abscess or evidence of dental pathology. Upon clinical exam there is a crack of the crown of # 19 that is the only positive finding that could be the etiology of the endocarditis. Both ID and medicine feels that extraction of # 19 is medically necessary as management of the endocarditis Based on the recent normal X Rays and the clinical exam there is no indication for any further imaging like a CT scan. Soft tissue: The floor of the mouth, tongue, hard/soft palate, posterior pharyngeal area all with in normal limits, no pathology or abnormal findings noted. No lesions noted that require follow up or Bx. Excellent oral care Oral Care: Overall oral care is good Occlusion: Class I missing teeth TMJ exam: No pop, clicking, pain, good ROM, No history of TMJ injury or dysfunction Periodontal exam: Healthy gingival tissue without evidence of periodontal pathology. Head/Neck exam: Neck is supple, FROM, Able to extend and flex neck w/o difficulty, no masses, no abnormalities, no airway issues, no evidence of sleep apnea. Treatment Plan: Extraction # 19 in OR then can be considered for discharge as per hospital medicine Set up with general anesthesia or deep sedation in hospital Medical clearance given I reviewed the treatment plan and consent with the patient and her and son. Understanding was expressed. Time was given for questions regarding the surgery, risks and post op care. Discussed alternative to treatment--procedure as planned, Do not do surgery or get Endo The following tooth # 19 is fractured and removal is indicated NOE: Risks discussed: Bleeding,Pain,swelling,infection, dry socket, delayed healing, nerve injury to face,lips,tongue,chin area which could be permanent (rare). TMJ, jaw stiffness, change in bite (rare), ear pain (referred). Sinus problems like fistula or infection. Need to leave a small root fragment in place to avoid injury to nerve or sinus. Relationship of wisdom teeth to nerve/sinus and risk of jaw fracture. Home care reviewed: tooth brushing, rinsing, follow up care with Dr Mon. diet=[id number] dental. Discussed activity level, driving/work while on Rx pain Meds. Surgery to be set up in the OR with GA vs. Deep sedation on June 22 in the afternoon. Allergies Allergy/AdvReac Type Severity Reaction Status Date / Time latex Allergy UNKNOWN Verified 06/18/23 08:40 Sulfa (Sulfonamide Allergy UNKNOWN Verified 06/18/23 08:40 Antibiotics) Home Medications Medication Instructions Recorded Confirmed Type Lactobacillus rhamnosus GG 10 1 cap PO QAM 06/18/23 06/18/23 History billion cell capsule (Culturelle) amlodipine 10 mg tablet 10 mg PO QAM 06/18/23 06/18/23 History atorvastatin 10 mg tablet 10 mg PO HS 06/18/23 06/18/23 History glucosamine-chondroitin 250 mg-200 2 tab PO QAM 06/18/23 06/18/23 History mg tablet (Osteo Bi-Flex) hydrochlorothiazide 12.5 mg tablet 12.5 mg PO QPM 06/18/23 06/18/23 History losartan 100 mg tablet 100 mg PO HS 06/18/23 06/18/23 History metformin 500 mg tablet,extended 1,000 mg PO BID 06/18/23 06/18/23 History release 24 hr omeprazole 20 mg capsule,delayed 20 mg PO QAM 06/18/23 06/18/23 History release Patient History Social History Smoking Status: Never smoker Hx Alcohol Use: No Hx Substance Use: No Preferred Language: [place] Communication Ability: Effective [employer] Worker Required: No Beliefs That Will Affect Care: None Current Living Situation: Spouse Feels Safe at Home: Yes Assistive Devices: None Results & Data Vital Signs (Past 12 Hours) Vital Signs Temp Pulse Pulse Resp BP Pulse Ox O2 Del Method 06/23/23 03:00 36.4 C L 69 18 144/67 H 93 Room Air 06/22/23 22:09 36.9 C 64 18 138/69 92 Room Air 06/22/23 22:00 62 PG Care Time/CCT Total # of Minutes Spent Total Time Spent with Patient: Total time spent is greater than 50% in coordination of care (as documented) at patient's floor/unit and/or counseling patient: Coding Level of Care Code 96210 INT INP/OBS CARE MIN Diagnoses Open fracture of tooth, initial encounter S02.5XXB Encounter type: initial encounter Fracture type: open Acute bacterial endocarditis I33.0 Chronicity: acute Infective endocarditis organism: bacterial Infection due to alpha-hemolytic Streptococcus A49.1 (1) Fractured tooth Encounter type: initial encounter Fracture type: open Qualified Code(s): S02.5XXB - Fracture of tooth (traumatic), initial encounter for open fracture (2) Infective endocarditis Chronicity: acute Infective endocarditis organism: bacterial Qualified Code(s): I33.0 - Acute and subacute infective endocarditis
[2023-06-23] MEDS: LANTUS PER UNIT CHARGE SQ SCH (10:11)
[2023-06-23] MEDS: DEXTROSE 50% 50 ML SYRINGE IV STA (10:26)
--- NOTE | 2023-06-23 11:40 | Infectious Disease Progress Nt ---
Date of Service June 23, 2023 Assessment & Plan (1) Infective endocarditis: (2) Infection due to alpha-hemolytic Streptococcus: (3) Fever: (4) Demand ischemia: (5) Type 2 diabetes mellitus: Plan 82yo F with h/o T2DM, HTN, HLD, right shoulder replacement 10yrs ago who presen rashawn on 06/17 with feeling unwell. She had progressively worsening fever, nausea, chills, body aches since 06/15, and poor PO intake x 3 days. Also noted to be more confused over 72hrs, found by EMS to be hypoxic to 84% and nonresponsive. Here she was febrile to 39.4, BP stable, initially on 4L NC. WBC 9.06, Cr 0.83, AST/ALT wnl. Troponin peaked at 4500. ESR 34, CRP 15.92. D dimer 1980. UA negative. Negative anaplasma/babesia smear. Lyme neg. RPP neg. CXR neg. CTH neg. Chest CTA neg. TTE with LVEF 55-60%, moderate MR. BCx returned positive for alpha Strep and ID consulted 06/19 for assistance. She has been afebrile since admission and is on RA. ID consulted 06/19 for alpha Strep bacteremia. GIANA showed 11 x 5mm mobile mass involving posterior mitral leaflet, mild-moderate mitral regurgitation, trace AR, small pericardial effusion. Face XR negative for mandibular osteomyelitis. Waiting on blood cx sensitivities. Given large vegetation, CT surgery was contacted and no surgical management at this time. Patient going for tooth extraction today. Per micro lab, they are having trouble growing organism for culture sensitivity and ID. Will wait for results which if able to be done should be available today. I told them if we are unable get the results then this should be sent to [facility] for testing. Sensitivities still in process. Abx changed to CTX since likelihood of resistance is low. There is a little over 90% chance Strep isolate is CTX susceptible. Given her age, I would like to avoid empiric toxic drugs (ie gent, vanc) if possible. Therefore, will plan for treatment with CTX for 4-6 weeks with close monitoring, unless susceptibility data shows resistance, at which point this will need to be changed. ABx: Vanc 06/18-06/21 CTX 06/17, 06/21- 06/17 BCX: alpha Strep not S.pne/enteroco in anaerobic bottles of 2 sets 06/19 BCx: ngtd 06/20 BCX: ngtd # Mitral valve endocarditis # Alpha-hemolytic Streptococcus bacteremia # Dental issues R lower molar going for extraction # h/o R shoulder replacement - f/u blood cx sensitivities and ID - if unable to get data at our lab, testing to be sent to [facility] (in which case patient can be discharged with below plan and follow up on susceptibility data outpatient. Can consider repeating BCx in 1 week to ensure adequate abx coverage if susceptibility data is still not available at that time) - will plan for CTX 2g IV daily for 4-6 weeks of IV antibiotics (usually treatment is 4 weeks for Strep viridans, pending susceptibility data and whether abx need to be changed) (start date 06/19 - first negative BCx, 4 weeks on 07/16) - monitor weekly CBC w diff and CMP while on IV abx - monitor for diarrhea (>3 loose stools a day) while on antibiotics, as well as signs of heart failure and embolic phenomena (ie complications of endocarditis) - she should have a repeat TTE at end of therapy - encourage daily dental hygiene and frequent dental evaluations - she will need abx ppx prior to future invasive dental work given risk for recurrent IE - she will require follow up with a local ID provider in the community Carina Anguiano MD [facility], Division of Infectious Diseases [facility]: [phone] Admission and Anticipated Discharge Date Admission Date: June 18, 2023 Subjective Subsequent visit was provided via telemedicine using two-way real-time interactive telecommunication between the patient and the telemedicine provider. For the duration of the visit, the provider was performing the assessment from a different facility than the patient. This includesuse of bluetooth stethoscope forauscultationperformed by the telepresenter that the telemedicine provider can hear if described in the physical exam. [employer] contact information: Please call [facility] Call Center [phone]. (Phone Number For Physician Use Only) After establishing a telemedicine visit, patient was: Patient was verified with two unique identifiers, Patient/authorized rep acknowledged consent and understanding and Gave permission to continue telehealth session Time Spent with Patient: Subsequent => 55 min Patient doing well, no complaints. No diarrhea, SOB. Physical Exam Physical Exam: General: Awake, alert, no acute distress HEENT: NC/AT, EOMI, mmm Neck: supple Lungs: respirations non-labored Heart: nl peripheral perfusion Abdomen: soft, NT/ND Ext: + LE edema Results & Data Vital Signs (Past 12 Hours) Vital Signs Temp Pulse Pulse Resp BP BP Pulse Ox 06/23/23 10:41 36.7 C 65 19 144/78 H 97 06/23/23 09:00 63 06/23/23 07:30 36.8 C 73 19 128/72 93 06/23/23 03:00 36.4 C L 69 18 144/67 H 93 O2 Del Method 06/23/23 10:41 Room Air 06/23/23 09:00 06/23/23 07:30 Room Air 06/23/23 03:00 Room Air (1) Infective endocarditis Chronicity: acute Infective endocarditis organism: bacterial Qualified C ode(s): I33.0 - Acute and subacute infective endocarditis
--- NOTE | 2023-06-23 13:40 | Anesthesiology Consultation ---
Date of Service June 23, 2023 Assessment & Plan Chart Review Chart Review: Acceptable Risk for Surgery and Patient NOT seen in Pre Admission Testing Consults Requested none History Surgery Operation Date: 06/21/23 09:30 Proposed Procedures p Echo Transesophageal - Efra Logan MD Operation Date: 06/23/23 07:10 Proposed Procedures p Tooth Extraction - Jorge Mon, DMD Height/Weight Height: 5 ft 6 in Weight: 69.4 kg Allergies Allergy/AdvReac Type Severity Reaction Status Date / Time latex Allergy UNKNOWN Verified 06/18/23 08:40 Sulfa (Sulfonamide Allergy UNKNOWN Verified 06/18/23 08:40 Antibiotics) Medications Home Medications Medication Instructions Recorded Confirmed Last Taken Lactobacillus rhamnosus GG 10 1 cap PO QAM 06/18/23 06/18/23 06/16/23 billion cell capsule (Culturelle) amlodipine 10 mg tablet 10 mg PO QAM 06/18/23 06/18/23 06/16/23 atorvastatin 10 mg tablet 10 mg PO HS 06/18/23 06/18/23 06/16/23 glucosamine-chondroitin 250 mg-200 2 tab PO QAM 06/18/23 06/18/23 06/16/23 mg tablet (Osteo Bi-Flex) hydrochlorothiazide 12.5 mg tablet 12.5 mg PO QPM 06/18/23 06/18/23 06/16/23 losartan 100 mg tablet 100 mg PO HS 06/18/23 06/18/23 06/16/23 metformin 500 mg tablet,extended 1,000 mg PO BID 06/18/23 06/18/23 06/16/23 release 24 hr omeprazole 20 mg capsule,delayed 20 mg PO QAM 06/18/23 06/18/23 06/16/23 release Active Medications Generic Name Dose Route Start Last Admin Trade Name Freq PRN Reason Stop Dose Admin Heparin Sodium (Porcine) 5,000 units 06/18/23 21:00 06/23/23 08:01 Heparin Sod 5,000 Unit/0.5 Ml Vial SQ 07/18/23 20:59 Not Given Q12 JOHNNA Ceftriaxone Sodium 2,000 mg/ 50 mls @ 100 mls/hr 06/22/23 16:00 06/22/23 18:03 Dextrose IV 08/03/23 15:59 Infused Q24H [facility] Infusion Protocol Insulin Aspart 0 units 06/18/23 11:30 06/23/23 11:30 Insulin Aspart Per Unit Charge SC 07/18/23 11:29 Not Given ACHS JOHNNA Insulin Glargine 6 units 06/23/23 10:00 06/23/23 10:11 Lantus Per Unit Charge SQ 07/23/23 09:59 Not Given BID JOHNNA Pantoprazole Sodium 40 mg 06/19/23 09:00 06/23/23 08:02 Pantoprazole 40 Mg Tab PO 07/19/23 08:59 40 mg QAM JOHNNA Administration Social History Smoking Status: Never smoker Hx Alcohol Use: No Hx Substance Use: No substance use type: does not use Physical Exam Vital Signs Last Vital Signs Temp 36.7 C 06/23/23 10:41 Pulse 65 06/23/23 10:41 Resp 19 06/23/23 10:41 BP 144/78 H 06/23/23 10:41 Pulse Ox 97 06/23/23 10:41 O2 Del Method Room Air 06/23/23 10:41 O2 Flow Rate 10 06/21/23 10:00 Constitutional WD/WN, vitals as above Eyes + anicteric sclerae ENMT Thyromental Distance: > or= 3.5 Finger Breadths Mallampati Class: II Neck trachea midline, no thyromegaly Respiratory normal respiratory effort, lungs clear to auscultation Auscultation: + crackles Cardiovascular Rate/Rhythm: regular rate and regular rhythm Heart Sounds: + murmur Vessels: no JVD Extremities: + edema (1+ pitting edema b/l) Gastrointestinal (Abdomen) normal bowel sounds, soft, nontender, no hepatosplenomegaly Musculoskeletal Head/Neck/Chest: normocephalic and head atraumatic Neurologic moves all extremities Psychiatric Orientation: alert, oriented to person, oriented to place and cooperative; + not oriented to time Affect: euthymic affect Lymphatic no cervical or axillary lymphadenopathy Testing Laboratory Results 06/22/23 05:26 06/22/23 05:26 PT 10.6 Seconds (9.0-12.0) 06/19/23 15:23 INR 1.0 (0.9-1.1) 06/19/23 15:23 Urine Color Yellow 06/18/23 04:20 Urine Appearance Clear (Clear) 06/18/23 04:20 Urine pH 5.0 (4.5-7.5) 06/18/23 04:20 Ur Specific [place] 1.025 (1.000-1.030) 06/18/23 04:20 Urine Protein 1+ (Negative) H 06/18/23 04:20 Urine Glucose (UA) Negative (Negative) 06/18/23 04:20 Urine Ketones 2+ (Negative) H 06/18/23 04:20 Urine Nitrite Negative (Negative) 06/18/23 04:20 Ur Leukocyte Esterase Negative (Negative) 06/18/23 04:20 Urine WBC (Auto) 0 /hpf (0-5) 06/18/23 04:20 Urine RBC (Auto) 0-4 /hpf (0-4) 06/18/23 04:20 U Hyaline Cast (Auto) 1-5 /lpf (0-5) 06/18/23 04:20 U Epithel Cells (Auto) 0-5 /lpf (0-5) 06/18/23 04:20 Urine Bacteria (Auto) Negative (Negative) 06/18/23 04:20 06/18/23 04:08 Aerobic Blood Culture - Final Blood No growth in Aerobic bottle after 5 days. Anaerobic Blood Culture - Preliminary Alpha strep not S.pne/enteroco 06/18/23 04:23 Aerobic Blood Culture - Final Blood No growth in Aerobic bottle after 5 days. Anaerobic Blood Culture - Preliminary Alpha strep not S.pne/enteroco 06/21/23 15:47 Aerobic Blood Culture - Preliminary Blood No growth in Aerobic bottle after 24 hours. Anaerobic Blood Culture - Preliminary No growth in Anaerobic bottle after 24 hours. 06/21/23 15:55 Aerobic Blood Culture - Preliminary Blood No growth in Aerobic bottle after 24 hours. Anaerobic Blood Culture - Preliminary No growth in Anaerobic bottle after 24 hours. 06/20/23 07:06 Aerobic Blood Culture - Preliminary Blood No growth in Aerobic bottle after 48 hours. Anaerobic Blood Culture - Preliminary No growth in Anaerobic bottle after 48 hours. 06/20/23 06:56 Aerobic Blood Culture - Preliminary Blood No growth in Aerobic bottle after 48 hours. Anaerobic Blood Culture - Preliminary No growth in Anaerobic bottle after 48 hours. 06/23/23 06/23/23 06/23/23 11:25 09:50 07:28 POC Glucose 122 H 87 93
[2023-06-23] MEDS: DEXTROSE 50% 50 ML SYRINGE IV PRN (14:05)
[2023-06-23] MEDS ORDERED: ONDANSETRON INJ 2 MG/ML 2 ML VIAL IV PRN (14:56)
[2023-06-23] MEDS ORDERED: fentaNYL citrate PF 100 MCG/2 ML VIAL IV PRN (14:56)
[2023-06-23] MEDS ORDERED: ATROPINE SULFATE 0.1 MG/ML 10ML SYR IV PRN (14:56)
[2023-06-23] MEDS ORDERED: ePHEDrine sulfate 50 MG/ML AMP IV PRN (14:56)
[2023-06-23] MEDS: LACTATED RINGER'S 1,000 ML IV SCH (15:01)
--- NOTE | 2023-06-23 15:21 | Discharge Summary ---
Date of Service June 23, 2023 Admission HPI Per Admitting Provider Patient is an 82-year-old female with past medical history of controlled type 2 diabetes, hypertension, and hyperlipidemia presents to the hospital for evaluation of general unwellness. It seems since 06/16/2023, patient has had progressively worsening fever, nausea, chills, and bodyaches. She is also become more confused over the past 72 hours. Apparently, earlier this morning, patient became significantly fatigued and confused, so family called EMS. When she was found by EMS, she was tachypneic with an O2 saturation of 84% on room air and was nonresponsive at the scene. She was brought to the hospital for further evaluation. At the time of my arrival, patient's mentation is much improved and she states she is feeling better. She is denying any chest pain nor shortness of breath currently. She has never had a heart attack or stroke. She is able to tell me where we as well as the context but is unable to tell me the president or the year. She is able to state her name and her correct date of . and son are at bedside who states the patient has not been eating or drinking much over the past 3 days. They state that nothing like this has ever happened before. They report that she and her do own 3 dogs and were considering Lyme disease as a possibility for her symptoms. Neither recall having a tick on either of them. denies that the patient has had any diarrhea, hematochezia or melena as far as he is aware. Patient does have a history of diabetes but her sugars have been well-controlled. No other voiced complaints at this time. ED Course: Patient brought back and evaluated by provider. Labs are significant for hemoglobin of 10.1, normal white cell count, mildly low sodium at 134, low potassium at 3.0, glucose 137, bilirubin of 2, high-sensitivity troponin of 1542 that up trended to 2609, urinalysis negative for UTI, bio fire negative. Head CT and chest CTA negative for any acute process. Blood cultures taken prior to Rocephin administration. Patient given a fluid bolus as well as Tylenol and thereafter started on potassium chloride supplementation. The hospitalist service was consulted for concern regarding acute hypoxemic respiratory failure and further workup regarding fever of unknown origin. Admission Exam Per Admitting Provider Constitutional: WD/WN, vitals as above Eyes: + anicteric sclerae Neck: trachea midline, no thyromegaly Respiratory: normal respiratory effort, lungs clear to auscultation Cardiovascular: Rate/Rhythm: regular rate and regular rhythm Heart Sounds: + murmur Vessels: no JVD Extremities: + edema (1+ pitting edema b/l) Gastrointestinal (Abdomen): normal bowel sounds, soft, nontender, no hepatosplenomegaly Musculoskeletal: Head/Neck/Chest: normocephalic and head atraumatic Skin: Malarr rash noted Neurologic: moves all extremities Psychiatric: Orientation: alert, oriented to person, oriented to place and cooperative; + not oriented to time Affect: euthymic affect Lymphatic: no cervical or axillary lymphadenopathy Principal Diagnosis Gram-positive bacteremia, endocarditis. Discharge Exam General: No acute distress HEENT: PERRLA. Normal conjunctiva, anicteric sclera. Oropharynx normal. Respiratory: Normal respiratory effort, CTABL. Cardiovascular: RRR without murmurs, gallops, or rubs. No pedal edema. GI: Soft abdomen with normal bowel sounds heard on auscultation. Nontender x4 qu adrants Neuro: Alert and oriented x3. Discharge Data Allergies Allergy/AdvReac Type Severity Reaction Status Date / Time latex Allergy UNKNOWN Verified 06/18/23 08:40 Sulfa (Sulfonamide Allergy UNKNOWN Verified 06/18/23 08:40 Antibiotics) Consultations 06/18/23 07:37 ED Decision to Admit Stat 06/18/23 08:01 Consult Cardiology Routine 06/19/23 17:39 Consult Infectious Diseases Routine 06/21/23 19:13 Consult Oromaxillofacial Surgery Routine Procedures Performed Operation Date: 06/23/23 07:10 <No data on this case meets the specified criteria> Ordered Studies 06/18/23 04:27 CT head/brain wo con Stat 06/18/23 05:17 CT for pulmonary embolism PE [CT angio chest PE protocol] Stat Hospital Course (1) Gram-positive bacteremia: Gram Positive Bacteremia - blood culture grew alpha strep, not S. pneumoniae or enterococci. Sensitivities have not grown; repeat blood cx still negative - ID consulted, appreciate recs -Consulted oral maxillofacial surgery for tooth extraction. Performed 06/22 - continue vancomycin abx for now, plan for home care IV antibiotics pending sensitivities - PICC line placed 06/21 * Discharging home on IV ceftriaxone 2 g daily x 4 weeks. Final day July 19 * Weekly labs (CBC, CMP, blood cultures) for duration of antibiotic course * Strongly recommend repeat echocardiogram 4 weeks from discharge. To be ordered by PCP. * Infectious disease follow-up. To be ordered by PCP. Elevated Troponin Secondary to Endocarditis - GIANA showed vegetation at the mitral valve - troponin trending downwards, most recently 3776.9 pg/ml on 06/21/23 * Medical management as above Microcytic Anemia, Chronic - D-dimer elevated at 1980 ug/L and fibrinogen elevated at 442 mg/dL. These measurements could be elevated in the context of infection. She is already receiving heparin as prophylaxis for dvt - PT 10.6, INR 1.0 -Heparin prophylaxis for duration of hospital stay. Thrombocytopenia-resolved - nonspecific - platelet count trending upwards, 106 K/uL -->123 K/uL, Type 2 DM, Chronic -switched from home metformin to basal bolus insulin on admission -Basal bolus insulin. Stopped at discharge. * Continue home metformin HTN -Held on admission due to low BP. -BP 158/60 at discharge. * Restart home BP meds at discharge HDL -continue to hold statin GERD -continue PPI (2) Type 2 diabetes mellitus: (3) Microcytic anemia: (4) Hypertension: (5) Hyperlipemia: (6) GERD (gastroesophageal reflux disease): Total Time Total Time Spent Total Time Spent (In Minutes): Please see attending attestation. Discharge Plan Discharge Items Patient Disposition: Home - Self-Care Reason For Visit: fever Discharge Diagnosis: Gram-positive bacteremia, endocarditis Activity: Per Instructions section Non-emergency contact: Primary Care Provider and Online Trader Call non-emergency contact if: you have any medication questions, your symptoms worsen and your temperature is above 101 Follow-up/Referrals: Pita Dietz DO [Primary Care Provider] - Carina Anguiano MD [Physician] - Diet: Regular Addtl Attending Provider Instructions: Dear Melvi, You came to the hospital after feeling unwell for several days. You were admitted to the hospital for further evaluation and for symptom management. Our evaluation revealed that your symptoms were caused by an infection of your bloodstream, called bacteremia which was determined to have originated from your fractured tooth. You were initially started on antibiotics while we awaited a report identifying the source of infection. We also consulted an infectious disease specialist, who agreed with our initial assessment and made treatment recommendations. We also consulted with cardiology, who agreed to perform a transesophageal echocardiogram (ultrasound of the heart)this revealed that the infection in your bloodstream had seeded on your mitral valve. To address this, we kept you on IV antibiotics and monitored you for clinical improvement. To eradicate the presumed source of infection, we consulted with an oral maxillofacial surgery attendant, who operated and removed the offending tooth. Now that the procedure is complete, we feel that you are ready to be safely discharged home. 1. We are discharging you on IV antibiotic therapy for 4 weeks with a drug called ceftriaxone. Please inject IV ceftriaxone 2 g daily for 4 weeks, with the last injection on July 19. You will either have the antibiotic delivered to your home or have a home health aide administer it for you. If you experience diarrhea before your antibiotics course is complete, you should contact your PCP for instructions on what to do. 2. If you experience a return of your initial symptoms (fever, chills, weakness, nausea, etc.) while on IV ceftriaxone, immediately contact your primary care physician for evaluation or recommendations. 3. We stopped your blood pressure medications when you were admitted. Your blood pressures remained in an acceptable range throughout your stay. We are stopping it at discharge. Do not restart them until you have followed up with your PCP. 4. You should have your blood drawn for tests every week while you are on IV antibiotics. The order has already been signed, and will either be provided to you at discharge, or sent directly to the lab. Please check with the nurse before leaving that you have this order with you. If you do not have this order, you may also contact your primary care physician to order this for you. In any event, the results will be sent to your primary care physician. 5. It is very important that you make a follow-up appointment with your primary care physician (PCP). A follow-up appointment with your PCP will be made for you by our hospital medical office scheduler. However, if you are not contacted by your PCPs office within 2-3 business days regarding a follow-up appointment, you should call your PCPs office at [phone]. If you are unable to contact your PCPs office to schedule appointment, you may contact this hospital at [phone] to be connected with the hospital medical office scheduler, who will make an outpatient appointment with a [facility] provider. 6. You should complete another echocardiogram in 3 to 4 weeks following your discharge. This will be communicated to your primary care physician. However, at your follow-up visit, make sure that an echocardiogram has been ordered/scheduled. 7. You should get repeat blood cultures a week after the completion of your IV antibiotics course. This should be ordered by your PCP so make sure that this has been ordered at your follow-up PCP visit. 8. You should follow-up with a local infectious disease specialist. Our hospital medical office scheduler will make an appointment for you. However, if you have not been contacted about an appointment in 2-3 business days following discharge, please contact the hospital at the above number in order to have our hospital medical office scheduler make an appointment for you. It has been our pleasure to care for you here at [facility]. If you have any questions or concerns about your care, please reach out to the hospital at [phone]. Pending Studies at Discharge: No Stand-Alone Forms: My [facility], Smoking Cessation Medications and DC Order Prescriptions: Continued atorvastatin 10 mg tablet 10 mg PO HS amlodipine 10 mg tablet 10 mg PO QAM omeprazole 20 mg Capsule,Delayed Release(Dr/Ec) 20 mg PO QAM Culturelle 10 billion cell Capsule 1 cap PO QAM losartan 100 mg tablet 100 mg PO HS metformin 500 mg tablet extended release 24 hr 1,000 mg PO BID glucosamine-chondroitin [Osteo Bi-Flex] 250-200 mg Tablet 2 tab PO QAM hydrochlorothiazide 12.5 mg tablet 12.5 mg PO QPM Discharge Orders: Discharge Order (Routine); Ordered 06/23/23 Ordered By: Jorge Mon Admission Data Admit Date/Time: 06/18/23 09:31 Attending Provider: Jsoelito Longoria Admit Provider: Clau Domínguez Primary Care Provider: Pita Dietz Other Providers: [facility]; Clau Domínguez; Gerardo Muniz; Jennifer Camargo; Rosaura Miller; Lissy Cooper; Marifer Estrada; Carina Anguiano; Herminia Morgan; Cynthia Martin; Kadie Tamez; Jorge Mon Supervising Physician Co-Signing Physician Notes I personally examined the patient and verified all barraza points of history and exam, discussed case, and agree with decision making with Dr West and Hodan Cutler MS2 feels good, tooth extracted, would like to go home. Vitals noted, in general she is awake and alert easily forgetful but no distress. HEENT normocephalic atraumatic mucous membranes moist. Breathing unlabored no accessory muscle use good effort. Skin shows no rashes no pallor or icterus. Neuro without focal deficits. Gram-positive bacteremia (alpha hemolytic strep sepsis POA due to bacteremia/endocarditis)dental versus skin but most concerning for dental. Maxillofacial input appreciated, tooth has been extracted. Sending home on ceftriaxonesensitivities may never come available due to slow and poor growth of bacteriait has been sent out to [facility] for attempted growth and identification. However, given that she was not severe sepsis/septic shock on admission, and got better very quickly, as well as not really having any reason to harbor resistant bacteriain discussion with infectious disease we both agreed that it made the most sense to send her home on ceftriaxone rather than something that may have more toxicities. She has been on ceftriaxone for the last 24 hours and continues to improve, and it appears quite safe to send her home on this. Given that we may not have sensitivities, we agreed that repeating blood cultures in about a week, and then repeating blood cultures once she is off of antibiotics for about a week will provide a good "safety net" given that we are treating empirically. Right now her end date for antibiotics is set to be 07/19, but she should have a repeat echocardiogram around her last week of antibiotics, and that may necessitate a longer course of treatment. Tooth has been removed. Outpatient follow-up for this. Confusion/altered mental statusprobably metabolic encephalopathy due to sepsis that has improved. Elevated troponinconcerning for endocarditis, versus also could easily be demand ischemia. Thrombocytopenianonspecific, follow. improved overall DVT prophylaxisheparin subcu otherwise as above, Weekly CBC and basic metabolic panel while she is on antibiotics, echocardiogram in 3-4 weeks (prior to cessation of antibiotics), follow-up blood cultures next week, and then once she has been off of antibiotics for about a week Resident Activity Tracking Resident Involvement: Resident Care Provided Care Provided: Adult [facility]
--- NOTE | 2023-06-23 16:06 | History & Physical Bridge Note ---
Date of Service June 23, 2023 History & Physical Bridge Note I have examined the patient, reviewed the History & Physical and in the interval since the performance of the History & Physical I have noted the following changes of clinical significance: no changes noted OK for tooth extraction
[2023-06-23] MEDS ORDERED: fentaNYL citrate PF 100 MCG/2 ML VIAL ONE (16:11)
[2023-06-23] MEDS ORDERED: PROPOFOL IV EMULSION 10 MG/ML 100 ML VIAL IV ONE (16:28)
--- NOTE | 2023-06-23 16:33 | Post Operative Brief Note ---
PG Immediate Post Op with CF Date of Surgery June 23, 2023 Pre & Post Diagnosis Operation Date: 06/23/23 07:10 <No data on this case meets the specified criteria> I identified the patient and participated in the time-out.: Yes Procedure Operation Date: 06/23/23 07:10 <No data on this case meets the specified criteria> Surgeon Jorge Mon, MARIAELENA Waste Specialist Abraham Estimated Blood Loss 0 Findings Consistent with Post-Op Diagnosis fractured # 30 Anesthesia Type MAC Complications none Disposition Accompanied Patient To Recovery: Yes
[2023-06-23] MEDS: BUPIVACAINE/EPINEPHRINE 0.5% 1:200,000 1.8 ML CARP ONE (16:35)
[2023-06-23] MEDS: CHLORHEXIDINE GLUCONATE 0.12% 480 ML MT ONE (16:36)
--- NOTE | 2023-06-23 16:36 | Anesthesiology Progress Note ---
Date of Service June 23, 2023 Anesthesia Post Procedure Vital Signs Vital Signs: Temp Pulse Pulse Resp BP BP Pulse Ox 06/23/23 15:36 66 06/23/23 14:40 99.1 F 69 20 160/74 H 97 06/23/23 10:41 98.1 F 65 19 144/78 H 97 06/23/23 09:00 63 06/23/23 07:30 98.2 F 73 19 128/72 93 06/23/23 03:00 97.5 F L 69 18 144/67 H 93 06/22/23 22:09 98.4 F 64 18 138/69 92 06/22/23 22:00 62 06/22/23 19:30 99.3 F 74 18 138/76 96 O2 Del Method 06/23/23 15:36 06/23/23 14:40 Room Air 06/23/23 10:41 Room Air 06/23/23 09:00 06/23/23 07:30 Room Air 06/23/23 03:00 Room Air 06/22/23 22:09 Room Air 06/22/23 22:00 06/22/23 19:30 Room Air Transfer of Care Handoff Completed per policy Notes Mental Status: alert / awake / arousable and participated in evaluation Patient Amnestic to Procedure: Yes Nausea / Vomiting: adequately controlled Pain: adequately controlled Airway Patency, RR, SpO2: stable & adequate BP & HR: stable & adequate Hydration State: stable & adequate Anesthetic Complications: no major complications apparent and Pt Satisfied with anesthetic care
--- NOTE | 2023-06-23 18:39 | Billing Data ---
Date of Service June 23, 2023 Coding Level of Care Code 87658 IN/OBS DISCH 30 MIN/LESS
--- NOTE | 2023-06-27 18:06 | Operative Report ---
PG Post Operative Report Pre & Post Diagnosis Operation Date: 06/23/23 07:10 Pre-Op Diagnosis: Fractured tooth # 30 possible etiology to recent endocarditis diagnosis Post-Op Diagnosis: Fractured tooth # 30 possible etiology to recent endocarditis diagnosis I identified the patient and participated in the time-out.: Yes Procedure Operation Date: 06/23/23 07:10 Actual Procedures p Right Lower Molar Tooth Extraction #30(Right) - Jorge Mon DMD Surgeon Jorge Mon, MARIAELENA Tool Crib Clerk Abraham Estimated Blood Loss 0 Findings Consistent with Post-Op Diagnosis Specimens none Drains no Anesthesia Type MAC Complications none Disposition Accompanied Patient To Recovery: Yes Indications This was a fractured tooth with gingival inflammation. The the bacteria in her blood and development of endocarditis the Infectious dx data processing systems consultant requested that this to be removed NOE Description of Procedure Problem: Pain,swelling located---lower right Finding: There is a carious, fractured and infected tooth at site#:30 Plan: Surgical removal of the following tooth/teeth:30 Pre-op=This was a fractured tooth with gingival inflammation. The the bacteria in her blood and development of endocarditis the Infectious dx data processing systems consultant requested that this to be removed NOE # 30 [id number] for tooth # 30 Once cleared for surgery IV sedation was achieved, the eyes were protected by the anesthesia dept criteria.. A time out was take for patient ID, antibiotics, equipment and position verification once all agreed the procedure began. Once a surgical level of anesthesia was obtained and the local anesthesia was given time for the blocks the surgery was started. I turned my attention to the # 30 tooth This was a fractured tooth with gingival inflammation. The the bacteria in her blood and development of endocarditis the Infectious dx data processing systems consultant requested that this to be removed NOE Procedure report: After a complete H&P/ vital signs and oral exam was completed the patient was ready for the surgical procedure. Informed consent was reviewed and the consent form was signed. I gave them time to discuss any questions and if I explained the surgery that I will be performing to their understanding. The patient was positioned and light adjusted, Peridex mouth rinse was used and a final time out was taken to review the correct procedure, once agreed the local anesthesia was given in the standard fashion for the area of surgery. Local Anesthesia: Using 1.8 cc Xylocaine 2% with 1/100,000 epi as a block and as an infiltration, profound anesthesia was obtained within 5-10 minutes. Surgical Note: Now using a periosteal elevator the tissue was reflected to expose the alveolar bone. The rongeur was used to remove bone to allow the forceps to engage solid tooth structure. Using a controlled force the tooth was extracted in the standard manner. Once removed the roots were inspected and the socket was curetted. Sutures used: 2-0chromic x 2 A gauze pressure pack was placed over the socket and the patient was instructed to bite for 10 minutes. Rx given: will be given post op Meds as per ID and hospital medicine Post Op instructions: At this time I inspected the site: bleeding was controlled, instructions given by nursing staff (diet, oral care, use of gauze, follow up, pain management, activity, no driving if narcotics were Rx.) Discharge: The patient tolerated the IV sedation/local/extraction procedure extremely well Patient was discharged from OR to the recovery room She will be transported back to the floor and then D/C once the protocol is met. Unless there are issues with healing no follow up on my part is needed. Surgeon: Jorge Mon [facility] Oral Maxillofacial Surgery [facility] I attest to the content of the Intraoperative Record and any orders documented therein. Any exceptions are noted below.
== END 2023-06-23 18:53 | disposition home health service (06) | DRG 871 ==
LOC: ED 04:01 → SUATTDRO 09:31 → EDINP 09:31 → 2S 09:50 → UNDODISIN 06-22 17:47